=== PATIENT | female | born 1960 | race Two or more races ===

== ENCOUNTER 2025-02-05 17:53 | Emergency (ER) | payer BC, SELFPAY ==
[2025-02-05 17:54] VITALS: BMI 22.6
[2025-02-05 18:17] VITALS: BP 165/92; PULSE 63; RESP 18; TEMP 36.8; O2SAT 99
--- NOTE | 2025-02-05 18:59 | PD.EDANKLE ---
Lower Extremity Injury RME/HPI General Chief Complaint: Ankle/Foot Injury Stated Complaint: LEFT FOOT PAIN, NO INJURY SINCE TODAY Time Seen by Provider: 02/05/25 18:14 Arrival date/time: 02/05/25 17:53 RME / HPI RME / HPI Narrative: 64-year-old diabetic female presents to the ED with complaint of left dorsal foot redness and numbness that began today. She states that yesterday she was sitting on on her sister's lawn but does not remember any insect bite at the time. She denies any fever or chills, nausea or vomiting, diarrhea or abdominal pain. She has painful ambulation. She states her blood sugars have been reading very high, indicating that she does not eat right. Related Data Previous Rx's ?Medication ?Instructions ?Recorded cephalexin 500 mg capsule (Keflex) 500 mg PO TID #27 caps 04/30/20 meloxicam 15 mg tablet 15 mg PO QDAY #30 tabs 01/13/21 amoxicillin 875 mg-potassium 1 tab PO BID #20 tabs 02/05/25 clavulanate 125 mg tablet Allergies Allergy/AdvReac Type Severity Reaction Status Date / Time tramadol Allergy Severe Vomiting Verified 02/05/25 17:56 Review of Systems Review of Systems Systems Reviewed: All systems reviewed, normal except as documented Past Medical History Past Medical History NEUROLOGIC: Negative Neurological Disorders or Seizures CARDIAC: Negative Cardiac Disorders or Congestive Heart Failure RESPIRATORY: Positive Sleep Apnea; Negative Chronic Obstructive Pulmonary Disease (COPD) GASTROINTESTINAL: Positive Gastrointestinal Disorders and Gall Bladder Disease GENITOURINARY: Negative Genitourinary Disorders or Renal Disease REPRODUCTIVE: Positive Previous Pregnancies MUSCULOSKELETAL: Positive Arthritis and Carpal Tunnel Syndrome ENDOCRINE: Positive Diabetes Mellitus Type 2 and Hypothyroidism; Negative Diabetes Mellitus Type 1 HEMATOLOGIC: Negative Blood Disorders OTHER HISTORY: Positive Falls and Chicken Pox; Negative Hospitalization, Autoimmune Disease, Shingles, Blood Transfusions, Blood Transfusion Reaction, Anesthesia Reactions, Chemotherapy, Radiation Therapy or MRSA Family History FAMILY HISTORY: Positive Family Cardiac Disorders, Family Cancer and Family Surgery; Negative Family Psychiatric Problems, Family Respiratory Disorders, Family Gastrointestinal Problems or Family Anesthesia Reaction Surgical History SURGICAL: Positive Tubal Ligation Social History SMOKING STATUS: Never smoker SUBSTANCE USE: does not use ED Exam Narrative Physical exam: Alert and oriented, very pleasant 64-year-old female, no acute distress. Lungs are clear, regular rate and rhythm. Left ankle without tenderness. Normal range of motion. Left dorsal foot with erythema. No warmth noted however there is tenderness noted. She has numbness to her toes, unknown if this is new or chronic due to her poorly controlled diabetes. Course Course Course Narrative: CBC reveals a normal white count, normal H&H and normal platelets. ESR is normal at 10. CRP is normal at less than 0.5. CMP reveals normal electrolytes with the exception of an elevated glucose of 366. BUN and creatinine are normal. CO2 is minimally elevated at 31.5. LFTs are normal. Preliminary reading of left foot x-ray reveals no foreign body or bony destruction. Quality Measures none Orders Category Date Time Status XR foot comp LT min 3V Stat Exams 02/05/25 19:03 Taken CBC Stat Lab 02/05/25 19:21 Completed CMP [Comprehensive Metabolic Panel] Stat Lab 02/05/25 19:21 Completed CRP [C-Reactive Protein] Stat Lab 02/05/25 19:21 Completed ESR [Sed Rate (ESR)] Stat Lab 02/05/25 19:21 Completed Vital Signs Vital signs: Vital Signs Temperature 98.3 F 02/05/25 18:17 Pulse Rate 63 02/05/25 18:17 Respiratory Rate 18 02/05/25 18:17 Blood Pressure 165/92 H 02/05/25 18:17 Pulse Oximetry (%) 99 02/05/25 18:17 Oxygen Delivery Method Room Air 02/05/25 18:17 Extremity Injury, Lower Patient data External records reviewed:: None Clinical information provided by:: patient Social determinants that could affect healthcare access:: none Patient has the following chronic illnesses:: Diabetes How is presenting disease/condition affected by chronic disease/condition?: exacerbated by Evaluation data The following diagnostics were reviewed and interpreted by me:: lab results and radiology exam(s) Lab and/or radiology exams considered but not ordered:: N/A Interpretation Summary: As noted above Medications / Prescriptions Medications or Prescriptions considered but not ordered:: N/A Discharge Plan Plan Patient Disposition: HOME (Self Care) Discharge Disposition comment: Stable Prescriptions/Referrals Prescriptions/Med Rec: New amoxicillin-pot clavulanate 875-125 mg tablet 1 tab PO BID Qty: 20 0RF No Action cephalexin [Keflex] 500 mg capsule 500 mg PO TID Qty: 27 0RF meloxicam 15 mg tablet 15 mg PO QDAY Qty: 30 0RF Referrals: MIKEY PATEL [Primary Care Provider] - In 1 week Problem List Clinical Impression: Cellulitis Patient/Caregiver Discharge Instructions Education Materials: ED Cellulitis Additional Instructions: Take the antibiotics as prescribed and complete the course even though you may be feeling better. Use warm moist compresses and elevate the leg. Follow-up with their primary care physician in 24 to 48 hours. If you develop any new or worsening symptoms, return to the ED as soon as possible. Print Language: Vietnamese Stand Alone Forms: Veronica Award Info., Patient Portal Info Letter PA/ABRASIVE SAWYER Supervising Physician PA/ABRASIVE SAWYER Supervising Physician: Dr. Don
--- NOTE | 2025-02-05 19:03 | XR_ITS ---
Examination: Foot, left, 3 views Technique: AP, oblique, lateral views foot, 3 views Date and time of exam: February 05, 2025 1948 hours INDICATIONS: Left foot swelling and pain beginning today. FINDINGS: Mild osteoarthritis first metatarsophalangeal joint No fracture. No cortical bone destruction IMPRESSION: No fracture. No cortical bone destruction
[2025-02-05 19:29] LABS: Basophils # (Auto) 0.0 Thou/mm3 (0.0-0.2); Basophils % (Auto) 0 % (0-2.5); Eosinophils # (Auto) 0.3 Thou/mm3 (0.0-0.5); Eosinophils % (Auto) 4 % (0-10); Hematocrit 37.0 % (36.0-46.0); Hemoglobin 13.2 g/dL (12.0-16.0); Immature Granulocytes Auto 0.01 Thou/mm3 (0.00-0.00); Lymphocytes # (Auto) 1.7 Thou/mm3 (1.0-4.8); Lymphocytes % (Auto) 23 % (10-50); Mean Corpuscular HGB Conc 35.7 g/dl (31.0-37.0); Mean Corpuscular Hemoglobin 30.2 pg (25.0-35.0); Mean Corpuscular Volume 85 fL (80-100); Monocytes # (Auto) 0.6 Thou/mm3 (0.0-0.8); Monocytes % (Auto) 7 % (0-12); Neutrophils # (Auto) 4.9 Thou/mm3 (1.8-7.7); Neutrophils % (Auto) 66 % (37-80); Nucleated Red Blood Cell # 0.00 Thou/mm3 (0.00-0.00); Nucleated Red Blood Cell % 0 /100 WBC (0); Platelet Count 213 Thou/mm3 (140-440); RDW Standard Deviation 37.7 fL (36.4-46.3); Red Blood Count 4.37 Miln/mm3 (4.00-5.20); White Blood Count 7.5 Thou/mm3 (3.6-11.0)
[2025-02-05 19:39] LABS: Sed Rate (ESR) 10 mm/hr (0-30)
[2025-02-05 19:56] LABS: Alanine Aminotransferase 12 U/L (10-49); Albumin, Serum 4.6 gm/dL (3.4-4.8); Albumin/Globulin Ratio 1.9 (1.2-2.2); Alkaline Phosphatase 97 U/L (46-116); Anion Gap 9 (7-16); Aspartate Amino Transferase 14 U/L (0-34); BUN/Creatinine Ratio 10 Ratio (12-20); Bilirubin,Total 0.8 mg/dL (0.3-1.2); Blood Urea Nitrogen 9 mg/dL (9-23); C-Reactive Protein < 0.5 mg/dL (0.0-0.9); Calcium 9.7 mg/dL (8.3-10.6); Calcium (Corrected) 9.7 mg/dL (8.5-10.1); Carbon Dioxide 31.5 mMol/L (20.0-31.0); Chloride 102 mMol/L (98-107); Creatinine (Component) 0.9 mg/dL (0.6-1.3); Estimated Creatinine Clearance 50.6 mL/min (>60); Globulin 2.4 gm/dL (2.3-3.5); Glucose 366 mg/dL (74-106); Osmolality,Calculated 296 (275-295); Potassium 4.0 mMol/L (3.4-5.1); Sodium 142 mMol/L (136-145); Total Protein 7.0 gm/dL (5.7-8.2); eGFR > 60 See Note
[2025-02-05] MEDS: AMOXICILLIN/POT CLAV 875 TABLET 1 TAB PO (21:24)
== END 2025-02-05 21:28 | disposition home or self-care (01) ==
PROVIDERS: Physician Assistant; Emergency Provider Emergency Medicine; PCP Nurse Practitioner Family
DX: L03.116 Cellulitis of left lower limb (principal)
CPT/HCPCS: 36415; 73630; 80053; 85025; 85652; 86140; 99283; A9270

== ENCOUNTER 2025-04-30 14:01 | Observation (INO) | payer MEDICARE, MEDICAID, SELFPAY ==
[2025-04-30] VITALS (10 sets, daily range): BP systolic 158–179; BP diastolic 73–95; PULSE 57–76; RESP 16–97; TEMP 36–36.7; O2SAT 94–100; BMI 22.6; BMI 22.3
--- NOTE | 2025-04-30 14:27 | XR_ITS ---
Examination: CTA carotids with intravenous contrast CTA brain, head with intravenous contrast. 2-D sagittal, coronal reconstructions. 3-D reconstructions. Exam date and time: April 30, 2025, 1449 hrs. Indications: Stroke alert, onset focal neurologic deficit dizziness weakness W vision beginning today CTDI: vol (mGy) 11.1 DLP: (mGycm) 429 Technique: Multiple CTA axial brain, head carotid images post intravenous contrast injection 100 cc, [id number]. 2-D sagittal, coronal reconstructions. 3-D reconstructions, 3-D post processing including vascular maximum intensity projection images. Low dose protocols were performed. One or more of the following dose reduction techniques were used; automated exposure control, adjustment of the mA and/or KV according to patient size, use of iterative reconstruction technique. Findings: No significant common carotid carotid bifurcation or internal carotid artery stenoses. 14 mm right thyroid nodule Dominant left vertebral artery, no critical vertebral artery stenoses in the neck Intracranial vertebral arteries basilar artery and posterior cerebral branches fill with no large vessel occlusions Moderate calcification left juxtasellar internal carotid artery M1 segments middle cerebral arteries middle cerebral artery trifurcation vessels and anterior cerebral arteries fill with no large vessel occlusions Impression: 14 mm right thyroid nodule No significant neck arterial stenoses. No cerebral large vessel arterial occlusions or thrombus
--- NOTE | 2025-04-30 14:27 | XR_ITS ---
Examination: CT brain head without contrast. 2-D sagittal coronal reconstructions Date and time of exam:April 30, 2025, 1439 hrs. Indications: Stroke alert, onset focal neurologic deficit today CTDI: vol (mGy):48.4 DLP: (mGycm):941 Technique: Multiple CT axial sections of the brain have been obtained, 5 mm slice thickness. Contrast has not been administered. 2-D sagittal, coronal reconstructions have been obtained Low dose protocols were performed. One or more of the following dose reduction techniques were used; automated exposure control, adjustment of the mA and/or KV according to patient size, use of iterative reconstruction technique. Findings: No significant ventricular enlargement. Intra-axial or extra-axial hemorrhage density is not seen. No mass effect or midline shift Basal cisterns are not remarkable. Fourth ventricle is midline. Cranial vault intact. Impression: Negative for acute hemorrhage, mass effect or midline shift
--- NOTE | 2025-04-30 14:27 | EKG_ITS ---
[facility] Test Date: 2025-04-30 Pat Name: MACKENZIE QUIGLEY Department: Room: - Gender: Female Finisher Machine: : 1960 Requested By: Oniel Costa Order Number: [id number] Reading MD: Oniel Costa Measurements Intervals [place] Rate: 63 P: 23 [place]: 145 QRS: 17 QRSD: 93 T: 40 QT: 405 QTc: 415 Interpretive Statements SINUS RHYTHM Compared to ECG 04/29/2020 16:57:17 T-wave abnormality no longer present Possible ischemia no longer present /store/S0/[id number]/[id number].pdf
--- NOTE | 2025-04-30 14:27 | XR_ITS ---
Examination: AP chest single view Technique one AP portable upright chest single view Date and time: April 30, 2025 1510 hrs. Indications: Fever today. Findings: Minor prominence left ventricle. Mild vascular congestion. No lobar pneumonia. Prominent osteopenia Impression: Mild vascular congestion. No lobar pneumonia
--- NOTE | 2025-04-30 14:28 | PD.EDDIZZY ---
ED Dizzyness RME/HPI General Chief Complaint: Dizziness Stated Complaint: DIZZY SINCE 1000AM YESTERDAY Time Seen by Provider: 04/30/25 14:27 Arrival date/time: 04/30/25 14:01 RME / HPI RME / HPI Narrative: 64-year-old female patient came in for evaluation regarding sudden onset of double vision, dizziness, she cannot even walk due to unsteady gait and dizziness. Last well-known time 12:10 PM today. Her double vision is totally gone however she is still having dizziness severity 3 out of 10. She is able to ambulate now without assistance. Denies any upper or lower extremity weakness. Denies any headache. Patient denies any trauma or fall denies any neck pain denies any chest pain. Patient has been having on and off dizziness since yesterday yesterday morning and yesterday afternoon that resolved on its own. She is not as bad as today. She is not taking any blood thinner. She denies any history of DE or stroke in the past Related Data Home Medications ?Medication ?Instructions ?Recorded ?Confirmed blood-glucose sensor (FreeStyle 04/30/25 04/30/25 Zaria 3 Plus Sensor device) ergocalciferol (vitamin D2) 1,250 1,250 mcg PO .MON 04/30/25 04/30/25 mcg (50,000 unit) capsule gabapentin 100 mg capsule 100 mg PO DAILY 04/30/25 04/30/25 insulin glargine 100 unit/mL (3 25 unit subcut .AM 04/30/25 04/30/25 mL) subcutaneous pen (Lantus Solostar U-100 Insulin) metformin 500 mg 24 hr 500 mg PO BID 04/30/25 04/30/25 tablet,extended release (gastric retention) Allergies Allergy/AdvReac Type Severity Reaction Status Date / Time tramadol Allergy Severe Vomiting Verified 04/30/25 14:05 Review of Systems Review of Systems Narrative Review of Systems: Review of system reviewed and within normal limits except mentioned in HPI ED Exam Narrative Physical exam: VITAL SIGNS: Reviewed. GENERAL APPEARANCE: Alert and interactive, follows commands, no acute distress, HEAD AND FACE: Non-traumatic. ENT: PERRL, pink conjunctivitis, eyelid no trauma, Mucous membrane moist. NECK: Supple, nontender, no nuchal rigidity. CHEST: No tenderness, no crepitus, no paradoxical movement, no retractions. LUNGS: Clear, well ventilated, symmetric, no rales, no wheezing, no ronchi, no stridor, good breath sounds bilaterally. HEART: Regular rate, regular rhythm, no murmur, no gallops. ABDOMEN: Soft, positive bowel sounds, nondistended, no guarding, nontender, no rebound, no masses, RECTAL: Deferred. GENITAL: Deferred. NEUROLOGICAL: Gross motor function intact sensory function intact, Appropriate for age. MUSCULOSKELETAL: low back nontender, full range of motion. EXTREMITIES: Nontender, full range of motion. SKIN: Color pink, dry, no rash, no lacerations, no abrasions, no contusions. LYMPHATICS: Deferred. Course Quality Measures none Orders Category Date Time Status Admit to Inpatient Status Routine Admission 04/30/25 17:19 Active Patient Condition Routine Admission 04/30/25 17:19 Ordered Bedside Blood Glucose NOW Care 04/30/25 14:27 Completed COVID-19 Screening Questionnaire NOW Care 04/30/25 16:24 Active Blow Molder NOW Care 04/30/25 14:27 Completed Continuous Pulse Oximetry NOW Care 04/30/25 14:27 Completed Continuous Pulse Oximetry NOW Care 04/30/25 17:19 Completed Decision to Admit X1 Care 04/30/25 16:24 Completed EKG (ED ONLY) *Do not use* NOW Care 04/30/25 14:27 Completed In and Out Catheter NEEDED Care 04/30/25 14:27 Active Insert IV NOW Care 04/30/25 14:27 Completed Miscellaneous Nursing Order NOW Care 04/30/25 17:19 Active NIH Stroke Scale now Care 04/30/25 14:27 Active NPO NOW Care 04/30/25 14:27 Active NPO NOW Care 04/30/25 17:26 Active Neuro Check Q4H Care 04/30/25 17:19 Active Notify provider NEEDED Care 04/30/25 17:19 Active Nurse Swallow Screen X1 Care 04/30/25 17:25 Completed Nurse Swallow Screen x1 Care 04/30/25 14:27 Active Sequential Compression Device QSHIFT Care 04/30/25 17:19 Active Consult to Neurology / Tele-Neurology Routine Cons 04/30/25 14:27 Active Referral Physical Therapy Routine Cons 04/30/25 17:25 Active Referral Speech Therapy Routine Cons 04/30/25 17:25 Active Diet NPO (NOW) Diet 04/30/25 17:26 Active CA echo transesophageal Routine Exams 04/30/25 17:[address] angio stroke protocol Stat Exams 04/30/25 14:[address] stroke protocol Stat Exams 04/30/25 14:27 Completed EKG (ED Only) Stat Exams 04/30/25 14:27 Draft XR chest 1V portable Stat Exams 04/30/25 14:27 Completed CBC AM DRAW Lab 05/01/25 05:00 Ordered CBC AM DRAW Lab 05/02/25 05:00 Ordered CBC AM DRAW Lab 05/03/25 05:00 Ordered CBC AM DRAW Lab 05/04/25 05:00 Ordered CBC AM DRAW Lab 05/05/25 05:00 Ordered CBC AM DRAW Lab 05/06/25 05:00 Ordered CBC AM DRAW Lab 05/07/25 05:00 Ordered CBC Stat Lab 04/30/25 14:30 Completed Comprehensive Metabolic Panel AM DRAW Lab 05/01/25 05:00 Ordered Comprehensive Metabolic Panel AM DRAW Lab 05/02/25 05:00 Ordered Comprehensive Metabolic Panel AM DRAW Lab 05/03/25 05:00 Ordered Comprehensive Metabolic Panel AM DRAW Lab 05/04/25 05:00 Ordered Comprehensive Metabolic Panel AM DRAW Lab 05/05/25 05:00 Ordered Comprehensive Metabolic Panel AM DRAW Lab 05/06/25 05:00 Ordered Comprehensive Metabolic Panel AM DRAW Lab 05/07/25 05:00 Ordered Comprehensive Metabolic Panel Stat Lab 04/30/25 14:30 Completed Drug Screen,Urine Stat Lab 04/30/25 15:10 Completed Free T4 (Free Thyroxine) AM DRAW Lab 05/01/25 05:00 Ordered Lipid Panel AM DRAW Lab 05/01/25 05:00 Ordered Magnesium AM DRAW Lab 05/01/25 05:00 Ordered Magnesium AM DRAW Lab 05/02/25 05:00 Ordered Magnesium AM DRAW Lab 05/03/25 05:00 Ordered Magnesium AM DRAW Lab 05/04/25 05:00 Ordered Magnesium AM DRAW Lab 05/05/25 05:00 Ordered Magnesium AM DRAW Lab 05/06/25 05:00 Ordered Magnesium AM DRAW Lab 05/07/25 05:00 Ordered Magnesium Stat Lab 04/30/25 14:30 Completed Partial Thromboplastin Time Stat Lab 04/30/25 14:30 Completed Phosphorous AM DRAW Lab 05/01/25 05:00 Ordered Prothrombin Time with INR Stat Lab 04/30/25 14:30 Completed Thyroid Stimulating Hormone AM DRAW Lab 05/01/25 05:00 Ordered Troponin I Stat Lab 04/30/25 14:30 Completed Urinalysis, C/S if Indicated Stat Lab 04/30/25 15:10 Completed Acetaminophen Tab [Tylenol Tab] Med 04/30/25 17:19 Active 650 mg PO Q6H PRN Aspirin Med 04/30/25 15:03 Discontinued 325 mg PO X1 ONE Aspirin [Ecotrin] Med 05/01/25 09:00 Active 81 mg PO QDAY Atorvastatin Calcium [Lipitor] Med 04/30/25 21:00 Active 80 mg PO HS Clopidogrel [Plavix] Med 04/30/25 15:03 Discontinued 300 mg PO X1 ONE Clopidogrel [Plavix] Med 05/01/25 09:00 Active 75 mg PO QDAY Dextrose 50% Syr [D50w Syringe Abboject] Med 04/30/25 17:27 Active 25 ml IV Q15MIN PRN Dextrose 50% Syr [D50w Syringe Abboject] Med 04/30/25 17:27 Active 50 ml IV Q15MIN PRN Glucagon Inj Med 04/30/25 17:27 Active 1 mg IM Q15MIN PRN INSULIN LISPRO (AdmeLOG) [HumaLOG] Med 05/01/25 07:30 Active See Protocol SC AC Insulin Degludec Inj Med 05/01/25 09:00 Active 10 unit SC QDAY Labetalol IV [Trandate IV] Med 04/30/25 14:27 Discontinued 10 mg IVP Q15M PRN Ondansetron Inj [Zofran Inj] Med 04/30/25 14:27 Active 4 mg IVP Q4HR PRN Ondansetron Inj [Zofran Inj] Med 04/30/25 17:19 Active 4 mg IVP Q6H PRN Senna [Senokot] Med 04/30/25 17:19 Active 1 tab PO QDAY PRN Code Status Routine Oth 04/30/25 17:19 Ordered BiPAP / CPAP HS RT 04/30/25 17:40 Active Oxygen Delivery NOW RT 04/30/25 14:27 Active Oxygen Delivery PRN RT 04/30/25 17:19 Active Vital Signs Vital signs: Vital Signs Pulse Rate 76 04/30/25 14:30 Respiratory Rate 16 04/30/25 14:30 Blood Pressure 179/95 H 04/30/25 14:30 Pulse Oximetry (%) 96 04/30/25 14:30 Oxygen Delivery Method Room Air 04/30/25 14:30 Dizziness MDM Narrative MDM Narrative:: 64-year-old female patient came in for evaluation regarding sudden onset of double vision, dizziness, she cannot even walk due to unsteady gait and dizziness. Last well-known time 12:10 PM today. Her double vision is totally gone however she is still having dizziness severity 3 out of 10. She is able to ambulate now without assistance. Denies any upper or lower extremity weakness. Denies any headache. Patient denies any trauma or fall denies any neck pain denies any chest pain. Patient has been having on and off dizziness since yesterday yesterday morning and yesterday afternoon that resolved on its own. She is not as bad as today. She is not taking any blood thinner. She denies any history of DE or stroke in the past NIHs score is 0 Stroke alert was initiated right away on my initial evaluation. CT scan of the head and CT angiogram of the head and neck also all came back unremarkable. The rest of the labs unremarkable. I was able to spoke with teleneurologist, who recommends admission for stroke workup, start the patient on aspirin 325 mg and Plavix 300 mg p.o. x 1. Plan of care discussed with the patient who agrees to be admitted for further management. I spoke with hospitalist, who admitted the patient. Patient data External records reviewed:: None Clinical information provided by:: patient Social determinants that could affect healthcare access:: none Patient has the following chronic illnesses:: Diabetes mellitus How is presenting disease/condition affected by chronic disease/condition?: exacerbated by Evaluation data The following diagnostics were reviewed and interpreted by me:: lab results and radiology exam(s) Lab and/or radiology exams considered but not ordered:: None Interpretation Summary: EKG showed normal sinus rhythm, ventricular rate of 63 bpm, no ST segment elevation depression noted. Medications / Prescriptions Medications or Prescriptions considered but not ordered:: None Medication administrations:: Medication Administration History Acetaminophen (Acetaminophen 325 Mg Tablet) 650 mg PO Q6H PRN PRN Reason: Fever >100.4 or pain Stop: 05/30/25 17:18 Aspirin (Aspirin Ec 81 Mg Tabec) 81 mg PO QDAY RONDA Stop: 05/31/25 08:59 Atorvastatin Calcium (Atorvastatin Calcium 20 Mg Tablet) 80 mg PO HS RONDA Stop: 05/30/25 20:59 Last Admin: 04/30/25 20:09 Dose: 80 mg Documented By: KAYLEEN Clopidogrel Bisulfate (Clopidogrel Bisulfate 75 Mg Tablet) 75 mg PO QDAY RONDA Stop: 05/31/25 08:59 Dextrose (Dextrose 50%-Water Inj 50 Ml Syringe) 25 ml IV Q15MIN PRN PRN Reason: BG 50-70 responsive npo pt Stop: 05/30/25 17:26 Dextrose (Dextrose 50%-Water Inj 50 Ml Syringe) 50 ml IV Q15MIN PRN PRN Reason: BG <50 OR BG <70 & pt unresponsive Stop: 05/30/25 17:26 Glucagon (Glucagon Inj 1 Mg Vial) 1 mg IM Q15MIN PRN PRN Reason: BG <70, and no IV access Insulin Degludec (Insulin Degludec 5 Unit/0.05 Ml (Per 5 Units)) 10 unit SC QDAY [facility] Stop: 05/31/25 08:59 Insulin Human Lispro (Insulin Lispro (Admelog) 1 Unit/0.01 Ml Unit) 0 unit SC [facility]; Protocol Stop: 05/31/25 07:29 Labetalol HCl (Labetalol Inj 5 Mg/Ml Vial 20 Ml) 10 mg IVP Q15M PRN PRN Reason: SBP > 200 Ondansetron HCl (Ondansetron Inj 2 Mg/Ml Inj 2 Ml) 4 mg IVP Q4HR PRN PRN Reason: NAUSEA OR VOMITING Stop: 05/30/25 14:26 Ondansetron HCl (Ondansetron Inj 2 Mg/Ml Inj 2 Ml) 4 mg IVP Q6H PRN; Protocol PRN Reason: NAUSEA OR VOMITING Stop: 05/30/25 17:18 Sennosides (Senna Tablet) 1 tab PO QDAY PRN; Protocol PRN Reason: constipation Stop: 05/30/25 17:18 Discontinued Medications Aspirin (Aspirin 325 Mg Tablet) 325 mg PO X1 ONE Stop: 04/30/25 15:04 Last Admin: 04/30/25 15:25 Dose: 325 mg Documented By: CAROLINE Clopidogrel Bisulfate (Clopidogrel Bisulfate 75 Mg Tablet) 300 mg PO X1 ONE Stop: 04/30/25 15:04 Last Admin: 04/30/25 15:25 Dose: 300 mg Documented By: CAROLINE Influenza Virus Vaccine Quadrival (Influenza Virus Quadrivalent 0.5 Ml Syringe) 0.5 ml IMi .ONCE ONE Stop: 04/30/25 18:31 Labetalol HCl (Labetalol Inj 5 Mg/Ml Vial 20 Ml) 10 mg IVP Q15M PRN PRN Reason: HYPER Plavix and aspirin Consultations Consultation(s) initiated? (list below): Yes Consultation #1 (Physician, Specialty, Details): Teleneurologist Diagnosis Dizziness Differential Diagnosis: orthostatic hypotension, vertebral basilar insufficiency and cerebrovascular accident Most likely diagnosis given after review of the tests above:: Brain TIA Admission Indicated Admission indicated?: indicated Explain why admission is indicated or not indicated:: Provider management Admission Request Was there a request for admission?: Yes Admission Attestation Admission request attestation: Discussed case with [ Dr kimball] from Hospitalist service regarding admission. Discussed patients ED course, exam findings, labs, and radiology results. The Hospitalist [agrees ] to accept the patient for admission. Disposition Plan Disposition Plan: Admit Discharge Plan Plan Patient Disposition: Admit Acute Care w/in Hospital Problem List Clinical Impression: Brain TIA
--- NOTE | 2025-04-30 14:33 | PC.NURSE ---
Stroke alert called in Triage and patient taken to CT via gurney on CM, patient c/o dizziness, double vision and gen. weakness patient states intermittently x 1 month with another episode that started at approx 12:15pm today, Patient states currently symptoms have resolved. Teleneuorlogist on monitor consulting with patient.
[2025-04-30 14:37] LABS: Basophils # (Auto) 0.0 Thou/mm3 (0.0-0.2); Basophils % (Auto) 0 % (0-2.5); Eosinophils # (Auto) 0.1 Thou/mm3 (0.0-0.5); Eosinophils % (Auto) 2 % (0-10); Hematocrit 39.4 % (36.0-46.0); Hemoglobin 13.8 g/dL (12.0-16.0); Immature Granulocytes Auto 0.02 Thou/mm3 (0.00-0.00); Lymphocytes # (Auto) 1.7 Thou/mm3 (1.0-4.8); Lymphocytes % (Auto) 25 % (10-50); Mean Corpuscular HGB Conc 35.0 g/dl (31.0-37.0); Mean Corpuscular Hemoglobin 30.2 pg (25.0-35.0); Mean Corpuscular Volume 86 fL (80-100); Monocytes # (Auto) 0.4 Thou/mm3 (0.0-0.8); Monocytes % (Auto) 6 % (0-12); Neutrophils # (Auto) 4.3 Thou/mm3 (1.8-7.7); Neutrophils % (Auto) 66 % (37-80); Nucleated Red Blood Cell # 0.00 Thou/mm3 (0.00-0.00); Nucleated Red Blood Cell % 0 /100 WBC (0); Platelet Count 171 Thou/mm3 (140-440); RDW Standard Deviation 37.8 fL (36.4-46.3); Red Blood Count 4.57 Miln/mm3 (4.00-5.20); White Blood Count 6.5 Thou/mm3 (3.6-11.0)
--- NOTE | 2025-04-30 14:56 | PC.NURSE ---
Per Dr. Moore patient not a candidate for TNKAse, patient to ER room 2 hooked up to bedside cm, pulse ox, patient denies pain, skin is warm dry and pink, eladia. equal roll picker and able to move all ext.
[2025-04-30 14:58] LABS: Alanine Aminotransferase 11 U/L (10-49); Albumin, Serum 4.4 gm/dL (3.4-4.8); Albumin/Globulin Ratio 1.9 (1.2-2.2); Alkaline Phosphatase 100 U/L (46-116); Anion Gap 7 (7-16); Aspartate Amino Transferase 14 U/L (0-34); BUN/Creatinine Ratio 8 Ratio (12-20); Bilirubin,Total 0.8 mg/dL (0.3-1.2); Blood Urea Nitrogen 6 mg/dL (9-23); Calcium 9.5 mg/dL (8.3-10.6); Calcium (Corrected) 9.5 mg/dL (8.5-10.1); Carbon Dioxide 29.9 mMol/L (20.0-31.0); Chloride 100 mMol/L (98-107); Creatinine (Component) 0.8 mg/dL (0.6-1.3); Estimated Creatinine Clearance 56.9 mL/min (>60); Globulin 2.3 gm/dL (2.3-3.5); Glucose 358 mg/dL (74-106); Magnesium 2.0 mg/dL (1.6-2.6); Osmolality,Calculated 285 (275-295); Potassium 4.6 mMol/L (3.4-5.1); Sodium 137 mMol/L (136-145); Total Protein 6.7 gm/dL (5.7-8.2); Troponin I < 0.020 ng/mL (0.0-0.045); eGFR > 60 See Note
--- NOTE | 2025-04-30 15:01 | PD.TNEURO ---
Tele Neuro Consultation Consultation Date 04/30/25 Most Recent Vital Signs Last Vital Signs Pulse 76 04/30/25 14:30 Resp 16 04/30/25 14:30 BP 179/95 H 04/30/25 14:30 Pulse Ox 96 04/30/25 14:30 O2 Del Method Room Air 04/30/25 14:30 Consultation Narrative [facility] Tele[facility]urology Consult [facility] Patient Name:???MACKENZIE CESAR Date of :???1960 Identification Number:??? Date of Service:???04/30/2025 14:28:06 Diagnosis:?R29.818 - Transient neurological symptoms Impression: ?64 year old woman with T2DM and HTN for whom neurology is consulted for evaluation of stroke. LKW 1200 today. Symptoms of gait instability and double vision. Now resolved. Two episodes of the same yesterday. NIHSS = 0. Thrombolytics deferred due to resolved symptoms. NCCT Head without acute ischemia or hemorrhage. CTA Head and Neck are pending. Overall, suspect high risk TIA likely related to transient ischemia of the brainstem as culprit of symptoms. I recommend inpatient evaluation/management. ? ?Recommendations: ?-q4 vitals/neurochecks ?-BP goal permissive up to 220/110mmHg for 24 hours followed by gradual reduction in BP toward goal normotension avoiding drop in BP >15% daily ?-Blood glucose goal <180mg/dL while admitted ?-Plavix 300mg x1 in ED, Aspirin 325mg x1 in ED ?-Continue Aspirin 81mg qdaily + Plavix 75mg qdaily x21 days then deescalate to aspirin monotherapy ?-Atorvastatin 80mg qHS ?-Check LDL and A1c (goal LDL <70, goal A1c <7) ?-Obtain CTA Head and Neck w/ contrast, MRI Brain w/o contrast, TTE w/ bubble, and place on telemetry monitoring ?-PT/OT/ST consults, NPO until passes bedside swallow study ?-Neurology follow up recommended Advanced Imaging: Advanced imaging has been ordered. Results pending. Metrics: Last Known Well: 04/30/2025 12:00:00 Dispatch Time: 04/30/2025 14:28:06 Arrival Time: 04/30/2025 14:01:00 Initial Response Time: 04/30/2025 14:29:54Symptoms: Dizziness, Double Vision. Initial patient interaction: 04/30/2025 14:10:30 NIHSS Assessment Completed: 04/30/2025 14:15:27Patient is not a candidate for Thrombolytic. Thrombolytic Medical Decision: 04/30/2025 14:15:30Patient was not deemed candidate for Thrombolytic because of following reasons: Resolved symptoms . CT Head: I personally reviewed all the CT images that were available to me and it showed: No hemorrhage or obvious acute ischemia Primary Provider Notified of Diagnostic Impression and Management Plan on: 04/30/2025 14:55:22 History of Present Illness:Patient is a 64 year old Female. Patient was brought by private transportation with symptoms of Dizziness, Double Vision. Mackenzie Cesar is a 64 year old woman with T2DM and HTN who presents to ED for evaluation of intermittent dizziness and double vision. She endorses onset of symptoms yesterday around 1000 as she was walking into her home she had a few moments of feeling off balance and noticing double vision. She sat down and symptoms resolved. Then, the same afternoon, around 1600 she suffered sudden onset of the same symptoms while driving. This episode lasted several minutes before eventually subsiding. Today, she was doing well until around noon when she suffered another episode of the same, symptoms now resolved. Past Medical History: ?Hypertension ?Diabetes Mellitus Medications: No Anticoagulant use? No Antiplatelet use Reviewed EMR for current medications Allergies:? Reviewed Social History: Drug Use: No Family History: There is no family history of premature cerebrovascular disease pertinent to this consultation ROS : 14 Points Review of Systems was performed and was negative except mentioned in HPI. Past Surgical History: There Is No Surgical History Contributory To Today?s Visit Examination: BP(179/95),?Pulse(76),?Blood Glucose(354) 1A: Level of Consciousness - Alert; keenly responsive?+ 0 1B: Ask Month and Age - Both Questions Right?+ 0 1C: Blink Eyes & Squeeze Hands - Performs Both Tasks?+ 0 2: Test Horizontal Extraocular Movements - Normal?+ 0 3: Test Visual Peña - No Visual Loss?+ 0 4: Test Facial Palsy (Use Grimace if Obtunded) - Normal symmetry?+ 0 5A: Test Left Arm Motor Drift - No Drift for 10 Seconds?+ 0 5B: Test Right Arm Motor Drift - No Drift for 10 Seconds?+ 0 6A: Test Left Leg Motor Drift - No Drift for 5 Seconds?+ 0 6B: Test Right Leg Motor Drift - No Drift for 5 Seconds?+ 0 7: Test Limb Ataxia (FNF/Heel-York) - No Ataxia?+ 0 8: Test Sensation - Normal; No sensory loss?+ 0 9: Test Language/Aphasia - Normal; No aphasia?+ 0 10: Test Dysarthria - Normal?+ 0 11: Test Extinction/Inattention - No abnormality?+ 0 NIHSS Score:?0 Pre-Morbid Modified Mikaela Scale: 0 Points = No symptoms at all Spoke with :?ED Attending MD This consult was conducted in real time using interactive audio and video technology. Patient was informed of the technology being used for this visit and agreed to proceed. Patient located in hospital and provider located at home/office setting. Patient is being evaluated for possible acute neurologic impairment and high probability of imminent or life-threatening deterioration. I spent total of 35 minutes providing care to this patient, including time for face to face visit via telemedicine, review of medical records, imaging studies and discussion of findings with providers, the patient and/or family. Dr Nestor Moore [facility] For Inpatient follow-up with [facility] physician please call [facility] at . As we are not an outpatient service for any post hospital discharge needs please contact the hospital for assistance. If you have any questions for the [facility] physicians or need to reconsult for clinical or diagnostic changes please contact us via [facility] at . Signature :?Nestor Moore
[2025-04-30] MEDS: CLOPIDOGREL BISULFATE 75 MG TABLET 300 MG PO (15:25)
[2025-04-30 15:31] LABS: Collection Type, Urine Clean Catch
[2025-04-30 15:34] LABS: Bilirubin,Urine Negative (Negative); Blood,Urine 2+ (Negative); Clarity,Urine Clear (Clear/Hazy); Color,Urine Yellow (Lt Yel-Yel); Culture Indicated,Urine Not Indicated; Glucose, Urine Negative (Negative); Ketones,Urine 1+ (Negative); Leukocyte Esterase,Urine Negative (Negative); Nitrite,Urine Negative (Negative); PH,Urine 6.5 (5.0-7.0); Protein,Urine Trace (Neg - Trace); RBC,Urine 146 /hpf (0-3); Specific Gravity,Urine 1.026 (1.001-1.035); Squamous Epithelial Cell,Urine < 1 /hpf (0-5); Urobilinogen,Urine Negative mg/dL (0.0-1.0); WBC,Urine 7 /hpf (0-5)
[2025-04-30 15:41] LABS: Amphetamine/Methamp Scrn,U Negative (Negative); Barbiturate Screen,Urine Negative (Negative); Benzodiazepines Screen,Urine Negative (Negative); Benzoylecgonine Screen, Ur Negative (Negative); Fentanyl Screen,Urine Negative (Negative); Opiate Screen,Urine Negative (Negative); THC Screen,Urine Negative (Negative)
[2025-04-30 15:54] LABS: INR 0.9 (0.9-1.3); Partial Thromboplastin Time 25.0 Seconds (22.0-36.0); Prothrombin Time 9.9 Seconds (9.0-12.2)
--- NOTE | 2025-04-30 17:28 | PD.RESHP ---
Documentation for date of: 04/30/25 Senior resident attestation: Patient evaluated and examined at the bedside, plan of care discussed with rest of the team including my attending physician, except as noted. Patient is a 61-year-old female past medical history of diverticulitis, JESSICA, and hypertension, who presented with recurrent episodes of double vision and dizziness. Patient reported episodes of dizziness and double vision, and transiently decreased vision from the left eye which improved shortly after. Patient had the symptoms yesterday which improved after few minutes and later had another episode when she was driving. NIHSS score was 0 as documented by teleneuro, patient was determined not a candidate for thrombolysis, but recommending admission and close observation as well as MRI for high risk TIA symptoms. Symptoms are concerning for thromboembolic phenomena as well as posterior circulation stroke. #Rule out stroke?CT and CTA were done in the ER, will admit patient for MRI. Echocardiogram and neurology evaluation. Quresh PGY3 HPI History of Present Illness Chief complaint: dizziness & double vision, stroke r/o History of present illness: Bridget Cesar 64F pmhx significant for IDDM2, diabetic neuropathy, JESSICA and hypertension who presents to with dizziness and double vision. Patient reports 3 episodes of double vision and dizziness. Dizziness is described as she is spinning not the room, denies loss of consciousness. First episode yesterday at 9 AM which occurred when she was walking around her mother's house, lasted a few seconds and resolved spontaneously. Second episode occurred when she was at a stoplight in her car reports sudden dizziness and left eye double vision with normal right vision the last several for about 5 minutes, she was able to ticket puller to park and rested until symptoms went away spontaneously. Third episode today at noon when she was getting up from doing laundry when she felt sudden dizziness and double vision lasting also for about 5 minutes resolving spontaneously. Patient reports never having's episodes before. Denies any nausea, vomiting, diaphoresis, presyncope, SOB or chest pain during these episodes. Dizziness is not reproducible with quick head movements denies any recent respiratory illness, new medication administration or vaccines. Denies any decreased p.o. intake reporting drinking 3-5 bottles of water a day more if she is thirsty. Does endorse urinary urgency and frequency with little output and occasionally has pain during urination for the past 2 months and she thinks she has UTI. Does endorse poor sleep, attributes to JESSICA and used to use CPAP however machine broke, describes orthopnea and PND every hour, no dyspnea on exertion. Denies any recent fever or chills. Reports using glucometer however fell few days ago but prior readings read high. Reports injecting herself with a medicine of 25 units every morning. Most recent A1c to her knowledge is 11, used to be 14. Saw a traveling repair accountant earlier this year who told her her eyes were good . PCP or Dr. Chacon and Dr. Chaney. Does not see a airport maintenance laborer or odd shoe examiner. PMHx: As above Surgical Hx: Bilateral cataract surgery (2022), bilateral carpal tunnel surgery, right elbow surgery, right bunion surgery, bilateral knee meniscal repairs, cholecystectomy, tubal ligation FHx: 8 siblings, 3 . Sister at 58 from likely heart complications, sister at 56 in 2022 likely from her complications, brother at age 54 from colon cancer or heart problems. Sister alive open heart surgery at age 62 with some kind of cancer, brother alive open heart surgery unknown age, everybody has diabetes Social Hx: Denies any smoking or recreational illicit drug use. Drinks about 4 beers once a week. Lives in a house in [place] by herself with support of nephew and daughter nearby. Retired about 6 years ago and previously worked in [employer] Allergies: Tramadol vomiting Medications: Metformin 500 mg twice daily, likely insulin 25 units every morning, vitamin D, third unknown medication In ED, BP 179/95, HR 76, RR 16, afebrile, satting 96% room air, significant labs include glucose 358, troponins negative.. In ED, given Plavix 300 mg x 1 and aspirin 3 to 25 mg x 1. Teleneurology consulted. Chest x-ray mild vascular congestion no lobar pneumonia. CT head negative for acute hemorrhage, mass effect or midline shift. Head neck CTA showed 14 mm right thyroid nodule, no significant neck arterial stenosis or cerebral large vessel arterial occlusions or thrombus. EKG shows sinus rhythm rate 63 QTc 415 Patient was admitted for further workup and stroke r/. Review of Systems Review of Systems Systems Reviewed: All systems reviewed, normal except as documented Exam Vital Signs Temp Pulse Resp BP Pulse Ox O2 Del Method 98.1 F 59 L 16 168/87 H 100 Room Air 04/30/25 14:57 04/30/25 16:55 04/30/25 16:55 04/30/25 16:55 04/30/25 16:55 04/30/25 16:55 Narrative Exam GENERAL: AOx3, no acute distress HEENT: NC/AT, mucous membranes moist, bilateral sclera anicteric CARDIOVASCULAR: regular rate and rhythm, S1/S2 present, no murmurs appreciated PULMONARY: clear to auscultation bilaterally, no rales/rhonchi/wheezes ABDOMINAL: soft, non-tender, non-distended, no rebound/guarding, bowel sounds present EXTREMITIES: no peripheral edema SKIN: warm and dry, intact, no rashes NEURO: CN II-XII grossly intact, no focal deficits, alert, following commands Results: Labs 05/01/25 04:50 05/01/25 04:50 Labs: Short CBC 04/30/25 Range/Units 14:30 WBC 6.5 (3.6-11.0) Thou/mm3 Hgb 13.8 (12.0-16.0) g/dL Hct 39.4 (36.0-46.0) % Plt Count 171 (140-440) Thou/mm3 BMP 04/30/25 14:30 Sodium 137 Potassium 4.6 Chloride 100 Carbon Dioxide 29.9 BUN 6 L Creatinine 0.8 Glucose 358 H Calcium 9.5 Cardiac Enzymes 04/30/25 Range/Units 14:30 Troponin I < 0.020 (0.0-0.045) ng/mL Liver Function 04/30/25 Range/Units 14:30 Total Bilirubin 0.8 (0.3-1.2) mg/dL AST 14 (0-34) U/L ALT 11 (10-49) U/L Alkaline Phosphatase 100 (46-116) U/L Albumin 4.4 (3.4-4.8) gm/dL Urine 04/30/25 Range/Units 15:10 Urine Color Yellow (Lt Yel-Yel) Urine Clarity Clear (Clear/Hazy) Urine pH 6.5 (5.0-7.0) Ur Specific [place] 1.026 (1.001-1.035) Urine Protein Trace (Neg - Trace) Urine Glucose (UA) Negative (Negative) Quality Measures Quality Measures VTE prophylaxis Medications Home Medications and Allergies Home Medications ?Medication ?Instructions ?Recorded ?Confirmed ?Type blood-glucose sensor (FreeStyle 04/30/25 04/30/25 History Zaria 3 Plus Sensor device) ergocalciferol (vitamin D2) 1,250 1,250 mcg PO .MON 04/30/25 04/30/25 History mcg (50,000 unit) capsule gabapentin 100 mg capsule 100 mg PO DAILY 04/30/25 04/30/25 History insulin glargine 100 unit/mL (3 25 unit subcut .AM 04/30/25 04/30/25 History mL) subcutaneous pen (Lantus Solostar U-100 Insulin) metformin 500 mg 24 hr 500 mg PO BID 04/30/25 04/30/25 History tablet,extended release (gastric retention) Allergies Allergy/AdvReac Type Severity Reaction Status Date / Time tramadol Allergy Severe Vomiting Verified 04/30/25 14:05 Visit Medications Acetaminophen (Acetaminophen 325 Mg Tablet) 650 mg PO Q6H PRN PRN Reason: Fever >100.4 or pain Stop: 05/30/25 17:18 Aspirin (Aspirin Ec 81 Mg Tabec) 81 mg PO QDAY [facility] Stop: 05/31/25 08:59 Atorvastatin Calcium (Atorvastatin Calcium 20 Mg Tablet) 80 mg PO [facility] Stop: 05/30/25 20:59 Clopidogrel Bisulfate (Clopidogrel Bisulfate 75 Mg Tablet) 75 mg PO QDAY RONDA Stop: 05/31/25 08:59 Insulin Degludec (Insulin Degludec 5 Unit/0.05 Ml (Per 5 Units)) 10 unit SC QDAY RONDA Stop: 05/31/25 08:59 Labetalol HCl (Labetalol Inj 5 Mg/Ml Vial 20 Ml) 10 mg IVP Q15M PRN PRN Reason: HYPER Ondansetron HCl (Ondansetron Inj 2 Mg/Ml Inj 2 Ml) 4 mg IVP Q4HR PRN PRN Reason: NAUSEA OR VOMITING Stop: 05/30/25 14:26 Ondansetron HCl (Ondansetron Inj 2 Mg/Ml Inj 2 Ml) 4 mg IVP Q6H PRN; Protocol PRN Reason: NAUSEA OR VOMITING Stop: 05/30/25 17:18 Sennosides (Senna Tablet) 1 tab PO QDAY PRN; Protocol PRN Reason: constipation Stop: 05/30/25 17:18 Discontinued Medications Aspirin (Aspirin 325 Mg Tablet) 325 mg PO X1 ONE Stop: 04/30/25 15:04 Last Admin: 04/30/25 15:25 Dose: 325 mg Clopidogrel Bisulfate (Clopidogrel Bisulfate 75 Mg Tablet) 300 mg PO X1 ONE Stop: 04/30/25 15:04 Last Admin: 04/30/25 15:25 Dose: 300 mg Assessment & Plan Plan Bridget Cesar 64F pmhx significant for IDDM2, diabetic neuropathy, JESSICA and hypertension who presents to [facility] ED 04/30 with dizziness and double vision, admitted for stroke rule out, found to be hyperglycemic. #Stroke r/o #Dizziness #Diplopia Presents with 3 episodes of acute dizziness and diplopia, left eye diplopia tested only during second episode. On admission, hypertensive with glucose 358. Chest x-ray mild vascular congestion no lobar pneumonia. CT head negative for acute hemorrhage, mass effect or midline shift. Head neck CTA showed 14 mm right thyroid nodule, no significant neck arterial stenosis or cerebral large vessel arterial occlusions or thrombus. EKG shows sinus rhythm rate 63 QTc 415 Ddx likely 2/2 hyperglycemia vs CVA/TIA vs sick sinus syndrome s/p Plavix 300 mg x 1 and ASA 81 mg x 1 in ED Plan: - Teleneurology consulted - F/u MRI, TTE - Started atorvastatin 80 mg qhs - Start ASA 81 mg QD and Plavix 75 mg QD tomorrow for 21 days, then transition to ASA only - q4h neurochecks - PT and ST consulted - NPO until passes swallow evaluation - Aspirations precautions and head of bed elevation 30 deg - Permissive up to 220/110mmHg for 24 hours followed by gradual reduction in BP toward goal normotension avoiding drop in BP >15% daily - Neurology consulted, recs appreciated #Hyperglycemia #IDDM2 #Diabetic neuropathy History of insulin-dependent diabetes, uses 25 units of insulin glargine in AM. Had Lashawn 3 however fell off a few days ago but readings prior to were always read as high. Blood glucose on admission 358. Also reports decreased sensation in bilateral feet, only mild. Plan: - F/u AM a1c, lipid panel, TSH/T4 - Started degludac 10u and SSI step 1 #JESSICA Per patient history. Reports previously using CPAP machine at home however broke a while ago. Plan: - CPAP qhs ordered #Essential HTN States she had HTN in the past, has never been on antihypertensives. Plan: - Permissive HTN per teleneurology for stroke r/o - CTM BP #Urinary Frequency #Urinary Urgency Patient reports 2 month-long history of urinary frequency and urgency, pain on urination occasionally. Has previously had 2 UTIs within the past 1 to 2 years in which resolved with antibiotics. Admission UA 1+ ketones, 2+ blood, 146 RBC, 7 WBC Current low suspicion for urinary tract infection with UA negative and likely secondary to hyperglycemia Plan: - CTM symptoms - Consider abx if symptoms become more severe Hospital management: Lines: PIV Diet: NPO until passes bedside swallow Bowel: Senna prn GI prophylaxis: not indicated DVT prophylaxis: SCDs iso stroke r/o Disposition: tele for stroke r/o CODE STATUS: FULL CODE Plan of care discussed with attending Dr. Durant, and PGY-3 Dr. Vila. Екатерина Bonner, DO PGY-1 Internal Medicine Attending Provider Attestation/Addendum I have examined the patient, reviewed labs and imaging findings, discussed the case with the resident(s), and reviewed entered orders. I agree with the plan of care as outlined in this note, with these additional summaries/recommendations: After examination of the patient and review of the clinical data, I feel that this patient needs admission to the hospital for further treatment and evaluation. Patient is a 64-year-old female with a medical history of JESSICA, primary hypertension, uncontrolled diabetes mellitus type 2, neuropathy, dyslipidemia, and vitamin D deficiency presents to [facility] emergency department on 04/30/2025 with chief complaints of double vision/dizziness and unsteady gait. Patient seen at bedside. Patient will be admitted for CVA rule out. Suspect TIA given patient's transient neurologic symptoms. Patient was seen by teleneurology who recommends loading doses of aspirin and Plavix which the patient received. We will continue aspirin 81 mg p.o. daily and Plavix 75 mg p.o. daily x 21 days then aspirin monotherapy. Start atorvastatin 80 mg p.o. daily. Order MRI brain, transthoracic echocardiogram, PT, and swallow screen. Consult in-house neurology, recommendations appreciated. Order vascular risk factors with TSH, lipid panel, and A1c. Patient has diabetes mellitus type 2 with hyperglycemia. On admission blood glucose 358. We will start basal and bolus insulin with Accu-Cheks. Target blood sugar of 140-180 while hospitalized. Hold home antihypertensives to allow for permissive hypertension. CPAP at night for obstructive sleep apnea. Patient updated on the plan and in agreement. All questions answered to satisfaction. Please see residents note for additional details and management. Dr. Carleen MD
[2025-04-30] MEDS: ATORVASTATIN CALCIUM 20 MG TABLET 80 MG PO (20:09)
--- NOTE | 2025-04-30 22:43 | ESPR_ITS ---
Documentation for date of: 04/30/25 Subjective Subjective Interval history: Patient was seen in telemetry, no similar episodes reported after admission. Exam - Neurology Vital Signs Temp Pulse Resp BP Pulse Ox O2 Del Method 97.0 F 60 16 158/89 H 97 Room Air 04/30/25 20:00 04/30/25 20:00 04/30/25 20:00 04/30/25 20:00 04/30/25 20:00 04/30/25 20:00 Narrative Exam GENERAL APPEARANCE: Well hydrated, well-nourished in no acute distress. HEENT: Normocephalic, atraumatic, extraocular movements intact. Pupils: Equal reacting to light and accommodation NECK: Supple, no JVD or bruits. CARDIOVASULAR: Heart: S1, S2 heard, regular without S3-S4 or murmur no rubs or gallops. LUNGS/CHEST: Clear to auscultation bilaterally. No rails, rhonchi, or wheezing. Normal inspection. ABDOMEN: Soft, nontender, with normal bowel sounds. No pulsatile masses. No rebound, rigidity, or guarding. Normal inspection and palpation. EXTREMITIES: Normal inspection and palpation. No edema, clubbing or cyanosis. SKIN: Warm and dry without rashes. Normal inspection. MUSCULOSKELETAL: No cervical, thoracic, lumbar or midline bony tenderness. Normal inspection. NEURO: Alert, awake and oriented x3. Cranial nerves: II through XII grossly intact. Speech and language: Normal with no dysarthria or dysphasia. Motor system: Tone and bulk: Normal: Strength: 5 out of 5 in all 4 extremities; No pronator drift noted. Deep tendon reflexes: 2+ bilaterally symmetrical. Plantar reflex: Downgoing bilaterally. Sensory system: Intact to all modalities of sensation bilaterally. Coordination: Intact to yavuoe-cyrz-scvra and jfwa-lwqz-ganx test bilaterally. No ataxia, no dysmetria, or dysdiadochokinesia noted. No intention tremors noted. Gait: Normal. Toe, heel, tandem walk all are normal. Romberg: Negative. No signs of meningeal irritation noted. PSYCHIATRIC: Normal mood and affect. Objective Labs 04/30/25 14:30 04/30/25 14:30 Labs: Laboratory Results - last 24 hr 04/30/25 04/30/25 14:30 15:10 WBC 6.5 RBC 4.57 Hgb 13.8 Hct 39.4 MCV 86 MCH 30.2 MCHC 35.0 RDW Std Deviation 37.8 Plt Count 171 Neut % (Auto) 66 Lymph % (Auto) 25 [place] % (Auto) 6 Eos % (Auto) 2 Baso % (Auto) 0 Neut # (Auto) 4.3 Lymph # (Auto) 1.7 [place] # (Auto) 0.4 Eos # (Auto) 0.1 Baso # (Auto) 0.0 Immature Gran # (Auto) 0.02 H Absolute Nucleated RBC 0.00 Immature Gran % 0 Nucleated RBC % 0 PT 9.9 INR 0.9 APTT 25.0 Sodium 137 Potassium 4.6 Chloride 100 Carbon Dioxide 29.9 Anion Gap 7 BUN 6 L Creatinine 0.8 Estim Creat Clear Calc 56.9 L eGFR > 60 BUN/Creatinine Ratio 8 L Glucose 358 H Calculated Osmolality 285 Calcium 9.5 Corrected Calcium 9.5 Magnesium 2.0 Total Bilirubin 0.8 AST 14 ALT 11 Alkaline Phosphatase 100 Troponin I < 0.020 Total Protein 6.7 Albumin 4.4 Globulin 2.3 Albumin/Globulin Ratio 1.9 Ur Collection Type Clean Catch Urine Color Yellow Urine Clarity Clear Urine pH 6.5 Ur Specific [place] 1.026 Urine Protein Trace Urine Glucose (UA) Negative Urine Ketones 1+ A Urine Blood 2+ A Urine Nitrite Negative Urine Bilirubin Negative Urine Urobilinogen (Auto) Negative Ur Leukocyte Esterase Negative Urine RBC 146 H Urine WBC 7 H Ur Squamous Epith Cells < 1 Urine Bacteria None Ur Culture Indicated? Not Indicated Urine Opiates Screen Negative Urine Fentanyl Screen Negative Ur Barbiturates Screen Negative U Amphetamin/Meth Scrn Negative U Benzodiazepines Scrn Negative U Cocaine Metab Screen Negative U Marijuana (THC) Screen Negative Assessment & Plan Assessment and plan (1) Brain TIA: Status: Acute Assessment and plan: Will follow-up with the TIA workup including MRI brain, echocardiogram and labs. Continue with aspirin 81 mg and statin Continue to monitor for any recurrence
[2025-05-01] VITALS (9 sets, daily range): BP systolic 120–150; BP diastolic 65–81; PULSE 53–98; RESP 13–94; TEMP 36.1–36.7; O2SAT 97–99; BMI 22.3
[2025-05-01 05:31] LABS: Basophils # (Auto) 0.0 Thou/mm3 (0.0-0.2); Basophils % (Auto) 0 % (0-2.5); Eosinophils # (Auto) 0.2 Thou/mm3 (0.0-0.5); Eosinophils % (Auto) 4 % (0-10); Hematocrit 36.5 % (36.0-46.0); Hemoglobin 12.7 g/dL (12.0-16.0); Immature Granulocytes Auto 0.01 Thou/mm3 (0.00-0.00); Lymphocytes # (Auto) 1.9 Thou/mm3 (1.0-4.8); Lymphocytes % (Auto) 31 % (10-50); Mean Corpuscular HGB Conc 34.8 g/dl (31.0-37.0); Mean Corpuscular Hemoglobin 30.0 pg (25.0-35.0); Mean Corpuscular Volume 86 fL (80-100); Monocytes # (Auto) 0.4 Thou/mm3 (0.0-0.8); Monocytes % (Auto) 7 % (0-12); Neutrophils # (Auto) 3.5 Thou/mm3 (1.8-7.7); Neutrophils % (Auto) 58 % (37-80); Nucleated Red Blood Cell # 0.00 Thou/mm3 (0.00-0.00); Nucleated Red Blood Cell % 0 /100 WBC (0); Platelet Count 135 Thou/mm3 (140-440); RDW Standard Deviation 38.0 fL (36.4-46.3); Red Blood Count 4.23 Miln/mm3 (4.00-5.20); White Blood Count 6.0 Thou/mm3 (3.6-11.0)
[2025-05-01 06:14] LABS: Alanine Aminotransferase 10 U/L (10-49); Albumin, Serum 3.7 gm/dL (3.4-4.8); Albumin/Globulin Ratio 1.9 (1.2-2.2); Alkaline Phosphatase 83 U/L (46-116); Anion Gap 9 (7-16); Aspartate Amino Transferase 14 U/L (0-34); BUN/Creatinine Ratio 13 Ratio (12-20); Bilirubin,Total 0.7 mg/dL (0.3-1.2); Blood Urea Nitrogen 8 mg/dL (9-23); Calcium 8.6 mg/dL (8.3-10.6); Calcium (Corrected) 8.8 mg/dL (8.5-10.1); Carbon Dioxide 28.0 mMol/L (20.0-31.0); Cardiac Risk Estimate 3.0 RATIO (3.7-5.6); Chloride 105 mMol/L (98-107); Cholesterol 213 mg/dL (132-200); Creatinine (Component) 0.6 mg/dL (0.6-1.3); Estimated Creatinine Clearance 75.9 mL/min (>60); Free T4 (Free Thyroxine) 1.14 ng/dL (0.89-1.76); Globulin 1.9 gm/dL (2.3-3.5); Glucose 217 mg/dL (74-106); HDL Cholesterol 71 mg/dL (40-60); LDL Cholesterol,Calculated 97 mg/dL (0-130); Magnesium 1.8 mg/dL (1.6-2.6); Osmolality,Calculated 288 (275-295); Phosphorous 3.9 mg/dL (2.4-5.1); Potassium 3.4 mMol/L (3.4-5.1); Sodium 142 mMol/L (136-145); Thyroid Stimulating Hormone 1.32 uIU/mL (0.55-4.78); Total Protein 5.6 gm/dL (5.7-8.2); Triglycerides 224 mg/dL (30-150); eGFR > 60 See Note
[2025-05-01] MEDS: CLOPIDOGREL BISULFATE 75 MG TABLET PO (08:00)
[2025-05-01] MEDS: ASPIRIN EC 81 MG TABEC PO (08:01)
[2025-05-01] MEDS: INSULIN LISPRO (AdmeLOG) 1 UNIT/0.01 ML UNIT SC ×3 (08:01→17:02)
[2025-05-01] MEDS: INSULIN DEGLUDEC 5 UNIT/0.05 ML (PER 5 UNITS) 10 UNIT SC (08:02)
[2025-05-01 10:26] LABS: Glucose Estimated Average 303 mg/dL (80-131); Hemoglobin A1C 12.2 % Hgb (4.8-6.0)
[2025-05-01] MEDS: Magnesium Sulfate 2 GM Ivpb 2 GM/50 ML BAG IV (11:04)
--- NOTE | 2025-05-01 12:22 | PC.SS ---
Bridget Cesar is a 64-year-old female admitted to [facility] for Stroke R/O. SS conducted bedside contact with the patient to complete initial assessment and to discuss discharge planning. Role and reason explained. Patient confirmed demographic information. Patient identifies dtr Alayna Escalante [phone] as her surrogate decision maker. Pt states she is able to complete all ADL?s independently. No need for any source of DME. Pts PCP is Dr. Chacon (last visit 2 weeks ago). Pharmacy of choice is [facility]. Discharge options discussed and the pt wishes to return home.? Family will provide transportation upon DC. No further intervention required at this time, social sciences lecturer would be available to address any further concerns. DC Plan: Home Contact: luis Catalan Address: Confirmed on face sheet PCP: Oswaldo
--- NOTE | 2025-05-01 13:56 | PD.RESPRO ---
Documentation for date of: 05/01/25 Senior resident attestation: Patient evaluated and examined at the bedside, plan of care discussed with rest of the team including my attending physician, except as noted. Patient is a 61-year-old female past medical history of diverticulitis, JESSICA, and hypertension, who presented with recurrent episodes of double vision and dizziness. Patient reported episodes of dizziness and double vision, and transiently decreased vision from the left eye which improved shortly after. Patient had the symptoms yesterday which improved after few minutes and later had another episode when she was driving. NIHSS score was 0 as documented by teleneuro, patient was determined not a candidate for thrombolysis, but recommending admission and close observation as well as MRI for high risk TIA symptoms. Symptoms are concerning for thromboembolic phenomena as well as posterior circulation stroke. Pending MRI. #Rule out stroke?CT and CTA were done in the ER, will admit patient for MRI. Echocardiogram and neurology evaluation. Quresh PGY3 Subjective Subjective Interval history: No acute overnight events. Patient seen examined at bedside. Patient reports no further episodes of dizziness and diplopia. No new complaints. Does endorse prior episode of lip numbness about 3 to 4 weeks ago with a total of 3 episodes only lasting about a few minutes each and spontaneously resolved. Has not had any lip numbness since. Vitals and labs reviewed, potassium 3.4, repleted with 40 mEq. Magnesium 1.8, repleted with 2 g IV. AM glucose 217. A1c 12.2. Pending MRI and TTE. Continue monitor for further symptoms. Dietitian consulted for diabetes education. Continue aspirin and Plavix and statin. Exam Vital Signs Temp Pulse Resp BP Pulse Ox O2 Del Method FiO2 97.8 F 69 16 150/81 H 98 Room Air 30 05/01/25 12:00 05/01/25 12:00 05/01/25 12:00 05/01/25 12:00 05/01/25 12:00 05/01/25 12:00 05/01/25 02:57 Narrative Exam GENERAL: AOx3, no acute distress HEENT: NC/AT, mucous membranes moist, bilateral sclera anicteric CARDIOVASCULAR: regular rate and rhythm, S1/S2 present, no murmurs appreciated PULMONARY: clear to auscultation bilaterally, no rales/rhonchi/wheezes ABDOMINAL: soft, non-tender, non-distended, no rebound/guarding, bowel sounds present EXTREMITIES: no peripheral edema SKIN: warm and dry, intact, no rashes NEURO: CN II-XII grossly intact, no focal deficits, alert, following commands Objective Labs 05/02/25 05:05 05/02/25 05:05 Labs: Laboratory Results - last 24 hr 04/30/25 04/30/25 05/01/25 14:30 15:10 04:50 WBC 6.5 6.0 RBC 4.57 4.23 Hgb 13.8 12.7 Hct 39.4 36.5 MCV 86 86 MCH 30.2 30.0 MCHC 35.0 34.8 RDW Std Deviation 37.8 38.0 Plt Count 171 135 L D Neut % (Auto) 66 58 Lymph % (Auto) 25 31 Motley % (Auto) 6 7 Eos % (Auto) 2 4 Baso % (Auto) 0 0 Neut # (Auto) 4.3 3.5 Lymph # (Auto) 1.7 1.9 Motley # (Auto) 0.4 0.4 Eos # (Auto) 0.1 0.2 Baso # (Auto) 0.0 0.0 Immature Gran # (Auto) 0.02 H 0.01 H Absolute Nucleated RBC 0.00 0.00 Immature Gran % 0 0 Nucleated RBC % 0 0 PT 9.9 INR 0.9 APTT 25.0 Sodium 137 142 Potassium 4.6 3.4 D Chloride 100 105 Carbon Dioxide 29.9 28.0 Anion Gap 7 9 BUN 6 L 8 L Creatinine 0.8 0.6 Estim Creat Clear Calc 56.9 L 75.9 eGFR > 60 > 60 BUN/Creatinine Ratio 8 L 13 Glucose [address] Glu mg/dL 303 H Hemoglobin A1c 12.2 H Calculated Osmolality 285 288 Calcium 9.5 8.6 Corrected Calcium 9.5 8.8 Phosphorus 3.9 Magnesium 2.0 1.8 Total Bilirubin 0.8 0.7 AST 14 14 ALT 11 10 Alkaline Phosphatase 100 83 Troponin I < 0.020 Total Protein 6.7 5.6 L Albumin 4.4 3.7 D Globulin 2.3 1.9 L Albumin/Globulin Ratio 1.9 1.9 Triglycerides 224 H Cholesterol 213 H LDL Cholesterol, Calc 97 HDL Cholesterol 71 H Cholesterol/HDL Ratio 3.0 L TSH 1.32 Free T4 1.14 Ur Collection Type Clean Catch Urine Color Yellow Urine Clarity Clear Urine pH 6.5 Ur Specific [place] 1.026 Urine Protein Trace Urine Glucose (UA) Negative Urine Ketones 1+ A Urine Blood 2+ A Urine Nitrite Negative Urine Bilirubin Negative Urine Urobilinogen (Auto) Negative Ur Leukocyte Esterase Negative Urine RBC 146 H Urine WBC 7 H Ur Squamous Epith Cells < 1 Urine Bacteria None Ur Culture Indicated? Not Indicated Urine Opiates Screen Negative Urine Fentanyl Screen Negative Ur Barbiturates Screen Negative U Amphetamin/Meth Scrn Negative U Benzodiazepines Scrn Negative U Cocaine Metab Screen Negative U Marijuana (THC) Screen Negative Quality Measures Quality Measures none Assessment & Plan Assessment Current Active Medications: Generic Name Dose Route Start Last Admin Trade Name Freq PRN Reason Stop Dose Admin Acetaminophen 650 mg 04/30/25 17:19 Acetaminophen 325 Mg Tablet PO 05/30/25 17:18 Q6H PRN Fever >100.4 or pain Aspirin 81 mg 05/01/25 09:00 05/01/25 08:01 Aspirin Ec 81 Mg Tabec PO 05/31/25 08:59 81 mg QDAY RONDA Administration Atorvastatin Calcium 80 mg 04/30/25 21:00 04/30/25 20:09 Atorvastatin Calcium 20 Mg Tablet PO 05/30/25 20:59 80 mg HS RONDA Administration Clopidogrel Bisulfate 75 mg 05/01/25 09:00 05/01/25 08:00 Clopidogrel Bisulfate 75 Mg Tablet PO 05/31/25 08:59 75 mg QDAY RONDA Administration Dextrose 25 ml 04/30/25 17:27 Dextrose 50%-Water Inj 50 Ml Syringe IV 05/30/25 17:26 Q15MIN PRN BG 50-70 responsive npo pt Dextrose 50 ml 04/30/25 17:27 Dextrose 50%-Water Inj 50 Ml Syringe IV 05/30/25 17:26 Q15MIN PRN BG <50 OR BG <70 & pt unresponsive Glucagon 1 mg 04/30/25 17:27 Glucagon Inj 1 Mg Vial IM Q15MIN PRN BG <70, and no IV access Insulin Degludec 10 unit 05/01/25 09:00 05/01/25 08:02 Insulin Degludec 5 Unit/0.05 Ml (Per 5 Units) SC 05/31/25 08:59 10 unit QDAY RONDA Administration Insulin Human Lispro 0 unit 05/01/25 07:30 05/01/25 11:19 Insulin Lispro (Admelog) 1 Unit/0.01 Ml Unit SC 05/31/25 07:29 5 unit AC RONDA Administration Protocol Labetalol HCl 10 mg 04/30/25 18:12 Labetalol Inj 5 Mg/Ml Vial 20 Ml IVP Q15M PRN SBP > 200 Ondansetron HCl 4 mg 04/30/25 17:19 Ondansetron Inj 2 Mg/Ml Inj 2 Ml IVP 05/30/25 17:18 Q6H PRN NAUSEA OR VOMITING Protocol Sennosides 1 tab 04/30/25 17:19 Senna Tablet PO 05/30/25 17:18 QDAY PRN constipation Protocol Plan Bridget Cesar 64F pmhx significant for IDDM2, diabetic neuropathy, JESSICA and hypertension who presents to [facility] ED 04/30 with dizziness and double vision, admitted for stroke rule out, found to be hyperglycemic. #Stroke r/o #Dizziness #Diplopia Presents with 3 episodes of acute dizziness and diplopia, left eye diplopia tested only during second episode. On admission, hypertensive with glucose 358. Chest x-ray mild vascular congestion no lobar pneumonia. CT head negative for acute hemorrhage, mass effect or midline shift. Head neck CTA showed 14 mm right thyroid nodule, no significant neck arterial stenosis or cerebral large vessel arterial occlusions or thrombus. EKG shows sinus rhythm rate 63 QTc 415 Ddx likely 2/2 hyperglycemia vs CVA/TIA vs sick sinus syndrome s/p Plavix 300 mg x 1 and ASA 81 mg x 1 in ED Plan: - F/u MRI, TTE - Continue atorvastatin 80 mg qhs - ASA 81 mg QD and Plavix 75 mg QD for 21 days (04/30- ), then transition to ASA only - q4h neurochecks - PT and ST consulted - Aspirations precautions and head of bed elevation 30 deg - Permissive up to 220/110mmHg for 24 hours followed by gradual reduction in BP toward goal normotension avoiding drop in BP >15% daily - Neurology consulted, recs appreciated #Hyperglycemia #IDDM2 #Diabetic neuropathy History of insulin-dependent diabetes, uses 25 units of insulin glargine in AM. Had Lashawn 3 however fell off a few days ago but readings prior to were always read as high. Blood glucose on admission 358. Also reports decreased sensation in bilateral feet, only mild. 04/2025 A1c 12.2, triglycerides 224, cholesterol 213, LDL 97, HDL 71 Plan: - Degludac 10u and SSI step 1 - Adjust insulin regimen as necessary #JESSICA Per patient history. Reports previously using CPAP machine at home however broke a while ago. Plan: - CPAP qhs ordered #Essential HTN States she had HTN in the past, has never been on antihypertensives. Plan: - Permissive HTN per teleneurology for stroke r/o - CTM BP #Urinary Frequency #Urinary Urgency Patient reports 2 month-long history of urinary frequency and urgency, pain on urination occasionally. Has previously had 2 UTIs within the past 1 to 2 years in which resolved with antibiotics. Admission UA 1+ ketones, 2+ blood, 146 RBC, 7 WBC Current low suspicion for urinary tract infection with UA negative and likely secondary to hyperglycemia Plan: - CTM symptoms - Consider abx if symptoms become more severe #14mm R thyroid nodule Incidental finding on head and neck CTA. TSH and T4 within normal limits. Plan: - No inpatient intervention at this time - Recommend further outpatient workup and management Hospital management: Lines: PIV Diet: NPO until passes bedside swallow Bowel: Senna prn GI prophylaxis: not indicated DVT prophylaxis: SCDs iso stroke r/o Disposition: tele for stroke r/o CODE STATUS: FULL CODE Plan of care discussed with attending Dr. Durant, and PGY-3 Dr. Vila. Екатерина Bonner, DO PGY-1 Internal Medicine Attending Provider Attestation/Addendum I have examined the patient, reviewed labs and imaging findings, discussed the case with the resident(s), and reviewed entered orders. I agree with the plan of care as outlined in this note, with these additional summaries/recommendations: Patient is a 64-year-old female with a medical history of JESSICA, primary hypertension, uncontrolled diabetes mellitus type 2, neuropathy, dyslipidemia, and vitamin D deficiency presents to [facility] emergency department on 04/30/2025 with chief complaints of double vision/dizziness and unsteady gait. Patient seen at bedside. No acute overnight events. She has no new symptoms to report today. Patient admitted for CVA rule out. Suspect TIA given patient's transient neurologic symptoms. Status post loading doses of Plavix and aspirin. Continue aspirin 81 mg p.o. daily and Plavix 75 mg p.o. daily x 21 days then aspirin monotherapy. Continue atorvastatin 80 mg p.o. daily. MRI brain, transthoracic echocardiogram, and PT pending. Consult in-house neurology, recommendations appreciated. Patient has uncontrolled diabetes mellitus type 2 with hyperglycemia. On admission blood glucose 358. She has poor understanding of diabetes management and diabetic education ordered. Continue basal and bolus insulin with Accu-Cheks. Target blood sugar of 140-180 while hospitalized. A1C 12.2%. Okay to resume home antihypertensives. CPAP at night for obstructive sleep apnea. Patient needs repeat sleep study outpatient. Patient updated on the plan and in agreement. All questions answered to satisfaction. Please see residents note for additional details and management. Dr. Carleen MD
--- NOTE | 2025-05-01 15:59 | PC.SS ---
Rounding: Pending MRI, DC plan home poss tomorrow 05/02
[2025-05-01] MEDS: ATORVASTATIN CALCIUM 20 MG TABLET 80 MG PO (20:06)
[2025-05-02] VITALS (8 sets, daily range): BP systolic 132–144; BP diastolic 76–87; PULSE 60–77; RESP 12–98; TEMP 36.1–36.8; O2SAT 94–100; BMI 22.3; BMI 22.4
--- NOTE | 2025-05-02 | XR_ITS ---
Examinations: MRI Brain without intravenous contrast. MRA brain without intravenous contrast. MRA carotids without intravenous contrast 3-D vascular reconstructions Date and time of exam: May 02, T2 thousand 25, 1215 hours Indication: Stroke alert April 30, 2025, dizziness, vertigo, left eye double vision lasting 5 minutes Technique: Multiple axial and sagittal images of the brain have been obtained MRA brain carotid images without contrast obtained, including 3-D postprocessing, vascular maximum intensity projection images Findings: Sellaturcica is not enlarged. The optic chiasm and infundibular stalk are not remarkable. Prepontine and interpeduncular cisterns are not enlarged. No localized enlargement of the medulla or lydia. Fourth ventricle and cerebellar tonsils normal in position. Subacute hemorrhage is not seen. Fourth ventricle is midline. Mass in the cerebellopontine angle region is not evident. 7th and 8th nerve complexes exhibits symmetry. Globes are symmetrical with no retro-orbital mass. Increased white matter signal evident, punctate foci increased signal in the white matter Diffusion-weighted images demonstrate no focus of restricted diffusion Mass-effect upon the ventricular system is not identified. MRA carotid images no significant stenoses. MRA brain images no large vessel occlusions Impression: Multiple punctate foci increased signal in the white matter, differential would include accelerated chronic microvascular white matter change, demyelinating disease
[2025-05-02 06:03] LABS: Basophils # (Auto) 0.0 Thou/mm3 (0.0-0.2); Basophils % (Auto) 0 % (0-2.5); Eosinophils # (Auto) 0.3 Thou/mm3 (0.0-0.5); Eosinophils % (Auto) 5 % (0-10); Hematocrit 37.2 % (36.0-46.0); Hemoglobin 13.2 g/dL (12.0-16.0); Immature Granulocytes Auto 0.01 Thou/mm3 (0.00-0.00); Lymphocytes # (Auto) 1.8 Thou/mm3 (1.0-4.8); Lymphocytes % (Auto) 31 % (10-50); Mean Corpuscular HGB Conc 35.5 g/dl (31.0-37.0); Mean Corpuscular Hemoglobin 31.0 pg (25.0-35.0); Mean Corpuscular Volume 87 fL (80-100); Monocytes # (Auto) 0.5 Thou/mm3 (0.0-0.8); Monocytes % (Auto) 8 % (0-12); Neutrophils # (Auto) 3.2 Thou/mm3 (1.8-7.7); Neutrophils % (Auto) 56 % (37-80); Nucleated Red Blood Cell # 0.00 Thou/mm3 (0.00-0.00); Nucleated Red Blood Cell % 0 /100 WBC (0); Platelet Count 163 Thou/mm3 (140-440); RDW Standard Deviation 39.3 fL (36.4-46.3); Red Blood Count 4.26 Miln/mm3 (4.00-5.20); White Blood Count 5.7 Thou/mm3 (3.6-11.0)
[2025-05-02 06:33] LABS: Alanine Aminotransferase 10 U/L (10-49); Albumin, Serum 3.8 gm/dL (3.4-4.8); Albumin/Globulin Ratio 1.7 (1.2-2.2); Alkaline Phosphatase 82 U/L (46-116); Anion Gap 8 (7-16); Aspartate Amino Transferase 15 U/L (0-34); BUN/Creatinine Ratio 15 Ratio (12-20); Bilirubin,Total 0.7 mg/dL (0.3-1.2); Blood Urea Nitrogen 9 mg/dL (9-23); Calcium 9.5 mg/dL (8.3-10.6); Calcium (Corrected) 9.7 mg/dL (8.5-10.1); Carbon Dioxide 28.5 mMol/L (20.0-31.0); Chloride 104 mMol/L (98-107); Creatinine (Component) 0.6 mg/dL (0.6-1.3); Estimated Creatinine Clearance 75.9 mL/min (>60); Globulin 2.2 gm/dL (2.3-3.5); Glucose 223 mg/dL (74-106); Magnesium 1.8 mg/dL (1.6-2.6); Osmolality,Calculated 285 (275-295); Potassium 4.2 mMol/L (3.4-5.1); Sodium 140 mMol/L (136-145); Total Protein 6.0 gm/dL (5.7-8.2); eGFR > 60 See Note
[2025-05-02] MEDS: Magnesium Sulfate 2 GM Ivpb 2 GM/50 ML BAG IV (08:59)
[2025-05-02] MEDS: INSULIN DEGLUDEC 5 UNIT/0.05 ML (PER 5 UNITS) 10 UNIT SC (08:59)
[2025-05-02] MEDS: INSULIN LISPRO (AdmeLOG) 1 UNIT/0.01 ML UNIT SC ×3 (08:59→17:34)
[2025-05-02] MEDS: CLOPIDOGREL BISULFATE 75 MG TABLET PO (09:00)
[2025-05-02] MEDS: ASPIRIN EC 81 MG TABEC PO (09:00)
--- NOTE | 2025-05-02 11:11 | PC.SS ---
Rounding: Pending MRI, DC plan home
--- NOTE | 2025-05-02 12:20 | PC.PT ---
PT eval only. Patient was xI with bed mobility, transfers, and ambulation with no AD. Patient is safe to ambulate to the bathroom and in the halls with no staff and no AD. RN made aware.
--- NOTE | 2025-05-02 12:31 | PC.CC ---
Attempted to see patient for DM education per MD request. Patient not in room. Will follow-up.
--- NOTE | 2025-05-02 16:02 | ESDS_ITS ---
<Statement entered by Elio Castillo MD - 05/02/25 17:23> Patient was seen and evaluated at bedside this morning. No acute overnight events. MRI did not show any acute infarct, only showed multiple punctate foci of increased signal in the white matter and neurology recommended to be discharged on aspirin and statin. Believe patient's uncontrolled diabetes could also have been contribution patient's symptoms as well as sleep apnea as well. Patient was given diabetic education and supplies as well. Patient's insulin regimen was changed to 15 units of glargine daily and 3 units of lispro 3 times daily with meals. It was emphasized to the patient that she needed to follow-up outpatient for a thyroid nodule and to go see endocrinology for better diabetes control. I have reviewed the note and agree with the resident's assessment & plan with exceptions as below. I have personally reviewed labs, imaging, home meds/prior records, examined the patient, formulated and discussed management plan with my attending Case disclosed with attending Dr. Carleen Castillo PGY2 Disclaimer: Even though this this note was dictated by speech recognition and even though it was carefully revised there may still be minor errors in lead quality technician due to voice recognition software. Planned Discharge Date 05/02/25 DS: Providers Provider Date of admission: 04/30/25 17:41 Primary care physician: Thom Chacon MD Admitting Provider: Richie Durant MD Attending Provider on Admission: Richie Durant MD Consults: 04/30/25 14:27 Consult to Neurology / Tele-Neurology Routine Comment: Consulting Provider: [facility] 04/30/25 17:25 Referral Physical Therapy Routine Comment: Physician Instructions: Referral Speech Therapy Routine Comment: 04/30/25 19:33 Consult to Neurology / Tele-Neurology Routine Comment: Consulting Provider: David Mason 05/01/25 14:32 Referral Registered Dietitian Routine Comment: diabetes education pls Attending Provider on DC: Richie Durant MD Discharging Provider: Richie Durant MD DS: Diagnosis Problem List Completed Was Problem List Reviewed/Reconciled?: Yes Hospital Course Hospital Course Hospital course: Summary: Bridget Cesar 64F pmhx significant for IDDM2, diabetic neuropathy, JESSICA and hypertension who presents to [facility] ED 04/30 with dizziness and double vision, admitted for TIA vs stroke rule out, found to be hyperglycemic glucose 358. Patient experienced three separate less than 5 minutes of episodes of dizziness with diplopia over a few days prior to admission which all resolved spontaneously, not precipitated by head movement or sitting/standing position. Denies dehydration. Patient received Plavix, ASA and statin and underwent stroke workup with MRI showing no acute stroke but multiple punctate foci increased signal in the white matter. TTE showed bubble study negative for any PFO or ASD. Normal LV size, wall thickness. There is grade I diastolic dysfunction. Estimated EF 55-60%. RV normal in size and systolic function. Normal RVSP. Trace MR and TR. No pericardial effusion. Overall, symptoms are likely secondary to hyperglycemia. Patient also reports home Lashawn readings consistently read high and A1c is 12.2, increased from 7.2 months ago. Patient's insulin regimen adjusted to 15u in AM and 3u during meals. Patient also endorsed urinary urgency and frequency on admission with little output and occasionally has pain during urination for the past 2 months however UA unremarkable and symptoms likely 2/2 hyperglycemia. Of note, on imaging 14mm R thyroid nodule was incidentally found on CTA head and neck and patient was notified and recommended. to follow up outpatient. On discharge, patient experienced no further episodes of dizziness of diplopia, labs and vitals reviewed to be stable and patient is ready to be discharged. Imaging: Head CT negative for acute hemorrhage, mass effect or midline shift Head neck CTA showed 14 mm right thyroid nodule, no significant neck arterial stenosis or cerebral large vessel arterial occlusions or thrombus. EKG shows sinus rhythm rate 63 QTc 415 Brain MRI with MRA showed multiple punctate foci increased signal in the white matter, no significant carotid stenosis, no large vessel occlusions TTE showed bubble study negative for any PFO or ASD. Normal LV size, wall thickness. There is grade I diastolic dysfunction. Estimated EF 55-60%. RV normal in size and systolic function. Normal RVSP. Trace MR and TR. No pericardial effusion. Discharge Recommendations: - Please take all medications as prescribed - START insulin glargine 15u daily and 3u lispro with meals - START aspirin 81 mg daily and atorvastatin 80 mg at bedtime - STOP metformin - Continue all home medications except as above - Please follow up with your PCP within one week of discharge for hospital follow up - Please follow up with your neurologist within one week of discharge - If your symptoms worsen, please seek immediate medical attention and return to your nearest emergency room. - If you do not have a PCP, you may follow up at the [facility] at [address], [facility] [address], Hospital Diagnoses: #Stroke, ruled out #Dizziness #Diplopia #Hyperglycemia #IDDM2 #Diabetic neuropathy #JESSICA #Essential HTN #Urinary Frequency #Urinary Urgency #14mm R thyroid nodule Екатерина Bonner, DO Internal Medicine, PGY-1 Plan and care discussed with attending Dr. Durant and PGY-2 Dr. Bryan. Time Spent with Patient Time attestation: Total time spent providing and/or coordinating discharge services: Time spent: Greater than 30 minutes Exam Vital Signs Temp Pulse Resp BP Pulse Ox O2 Del Method FiO2 96.9 F 65 15 133/80 H 94 L Room Air 30 05/02/25 12:00 05/02/25 12:00 05/02/25 12:00 05/02/25 12:00 05/02/25 12:00 05/02/25 12:00 05/01/25 02:57 Narrative Exam GENERAL: AOx3, no acute distress HEENT: NC/AT, mucous membranes moist, bilateral sclera anicteric CARDIOVASCULAR: regular rate and rhythm, S1/S2 present, no murmurs appreciated PULMONARY: clear to auscultation bilaterally, no rales/rhonchi/wheezes ABDOMINAL: soft, non-tender, non-distended, no rebound/guarding, bowel sounds present EXTREMITIES: no peripheral edema SKIN: warm and dry, intact, no rashes NEURO: CN II-XII grossly intact, no focal deficits, alert, following commands Discharge Plan Plan Patient Disposition: HOME (Self Care) Care Plan Goals: Follow-up with primary care physician within 2 to 3 days upon discharge Follow-up with neurologist within 5 to 7 days upon discharge Follow-up with endocrinology within 5 to 7 days for better diabetes control. You have been started on insulin glargine 15 units daily You have been started on insulin lispro 3 units with meals. You have been started on aspirin 81 mg daily and atorvastatin 80 mg at bedtime. Please follow-up with your primary care physician concerning echo results. Would recommend outpatient sleep study for obstructive sleep apnea Would recommend tighter control of blood glucose. Continue taking all other home medications as needed Please come back to the ER if symptoms persist or worsen. Prescriptions/Referrals Prescriptions/Med Rec: New insulin glargine [Basaglar KwikPen U-100 Insulin] 100 unit/mL (3 mL) insulin pen 15 unit subcut QAM Qty: 15 0RF atorvastatin [Lipitor] 80 mg tablet 80 mg PO QPM Qty: 30 0RF aspirin [Adult Low Dose Aspirin] 81 mg tablet,delayed release (DR/EC) 81 mg PO QDAY Qty: 30 0RF insulin lispro [Humalog KwikPen Insulin] 100 unit/mL insulin pen 3 unit subcut TID Qty: 15 0RF (DME) blood-glucose meter Misc See Rx Instructions .Route Qty: 1 0RF Rx Instructions: As directed (DME) Blood Glucose Test Strip See Rx Instructions .Route Qty: 50 0RF Rx Instructions: As directed (DME) pen needle, diabetic [Comfort EZ Pen Austin] 29 gauge x 1/2 needle See Rx Instructions .Route Qty: 100 0RF Rx Instructions: Inject 4 times daily (DME) lancets [Color Lancets] 21 gauge misc See Rx Instructions .Route Qty: 100 0RF Rx Instructions: 4 times daily Continued gabapentin 100 mg capsule 100 mg PO DAILY Patient Comments: TAKE ONE CAPSULE BY MOUTH TWICE DAILY FOR NERVE PAIN ergocalciferol (vitamin D2) 1,250 mcg (50,000 unit) capsule 1,250 mcg PO .MON Patient Comments: TAKE ONE CAPSULE BY MOUTH EVERY WEEK VITAMIN (DME) FreeStyle Zaria 3 Plus Sensor Device Patient Comments: DIRECTED Discontinued metformin 500 mg tablet,ER zain.[email or web address] 24 hr 500 mg PO BID Patient Comments: TAKE ONE TABLET BY MOUTH TWICE DAILY WITH FOOD FOR DIABETES insulin glargine [Lantus Solostar U-100 Insulin] 100 unit/mL (3 mL) insulin pen 25 unit SUBCUT .AM Patient Comments: INJECT 25 UNITS SUBCUTANEOUSLY EVERY EVENING FOR DIABETES Referrals: Oswaldo (PCP)Thom MD [Primary Care Provider, Family Practice] Patient/Caregiver Discharge Instructions Other Discharge Activity Instructions:: Follow-up with primary care physician within 2 to 3 days upon discharge Follow-up with neurologist within 5 to 7 days upon discharge Follow-up with endocrinology within 5 to 7 days for better diabetes control. You have been started on insulin glargine 15 units daily You have been started on insulin lispro 3 units with meals. You have been started on aspirin 81 mg daily and atorvastatin 80 mg at bedtime. Please follow-up with your primary care physician concerning echo results. Would recommend outpatient sleep study for obstructive sleep apnea Would recommend tighter control of blood glucose. Continue taking all other home medications as needed Please come back to the ER if symptoms persist or worsen. Education Materials: Diabetes: Activity Tips, Discharge Instructions for ..., Diabetes: Meal Planning Print Language: Iranian Stand Alone Forms: Veronica Award Info., Patient Portal Info Letter, Work/Release Restrictions Discharge Order Discharge Orders: Discharge (Routine); Ordered 05/02/25 Ordered By: Elio Castillo Quality Discharge Quality Measures VTE prophylaxis Attestestation Attestation I have examined the patient, reviewed labs and imaging findings, discussed the case with the resident(s), and reviewed entered orders. I agree with the plan of care as outlined in this note. Time Spent: [address] Carleen MD
--- NOTE | 2025-05-02 16:03 | ESPR_ITS ---
Documentation for date of: 05/02/25 Subjective Subjective Interval history: Patient examined at bedside. Vitals are stable, glucose this morning 223, MRI was negative for any ischemic changes, hemorrhage. Positive for findings of punctate foci. Patient is denying any recurrent episodes of the blurry vision. States that it usually is correlated with high blood pressure reads. She states that she has poor control of glucose and last visit to PCP about 3 weeks ago resulted in an increase of her long-acting insulin of about 10 units. Home blood sugar readings are averaging about 250. She is poorly controlled diabetic. Continue aspirin 81mg daily and atorvastatin 80 mg. Counseled on strict blood sugar control and exercise. Patient to follow up outpatient for echo results. Exam Vital Signs Temp Pulse Resp BP Pulse Ox O2 Del Method FiO2 96.9 F 65 15 133/80 H 94 L Room Air 30 05/02/25 12:00 05/02/25 12:00 05/02/25 12:00 05/02/25 12:00 05/02/25 12:00 05/02/25 12:00 05/01/25 02:57 Narrative Exam GENERAL APPEARANCE: Well kempt, well hydrated, well-nourished in no acute distress. HEENT: Normocephalic, atraumatic, extraocular movements intact. Pupils: Equal reacting to light and accommodation NECK: Supple, no JVD or bruits. CARDIOVASULAR: Heart: S1, S2 heard, regular without S3-S4 or murmur no rubs or gallops. LUNGS/CHEST: Clear to auscultation bilaterally. No rails, rhonchi, or wheezing. Normal inspection. ABDOMEN: Soft, nontender, with normal bowel sounds. No pulsatile masses. No rebound, rigidity, or guarding. Normal inspection and palpation. EXTREMITIES: Normal inspection and palpation. No edema, clubbing or cyanosis. SKIN: Warm and dry without rashes. Normal inspection. MUSCULOSKELETAL: No cervical, thoracic, lumbar or midline bony tenderness. Normal inspection. NEURO: Alert, awake and oriented x3. Cranial nerves: II through XII grossly intact. Speech and language: Normal with no dysarthria or dysphasia. Motor system: Tone and bulk: Normal: Strength: 5 out of 5 in all 4 extremities; No pronator drift noted. Deep tendon reflexes: 2+ bilaterally symmetrical. Plantar reflex: Downgoing bilaterally. Sensory system: Intact to all modalities of sensation bilaterally. Coordination: Intact to [id number] and mbcb-[id number] test bilaterally. No ataxia, no dysmetria, or dysdiadochokinesia noted. No intention tremors noted. Gait: Normal. Toe, heel, tandem walk all are normal. Romberg: Negative. No signs of meningeal irritation noted. PSYCHIATRIC: Normal mood and affect. Objective Labs 05/02/25 05:05 05/02/25 05:05 Labs: Laboratory Results - last 24 hr 05/02/25 05:05 WBC 5.7 RBC 4.26 Hgb 13.2 Hct 37.2 MCV 87 MCH 31.0 MCHC 35.5 RDW Std Deviation 39.3 Plt Count 163 D Neut % (Auto) 56 Lymph % (Auto) 31 [place] % (Auto) 8 Eos % (Auto) 5 Baso % (Auto) 0 Neut # (Auto) 3.2 Lymph # (Auto) 1.8 [place] # (Auto) 0.5 Eos # (Auto) 0.3 Baso # (Auto) 0.0 Immature Gran # (Auto) 0.01 H Absolute Nucleated RBC 0.00 Immature Gran % 0 Nucleated RBC % 0 Sodium 140 Potassium 4.2 D Chloride 104 Carbon Dioxide 28.5 Anion Gap 8 BUN 9 Creatinine 0.6 Estim Creat Clear Calc 75.9 eGFR > 60 BUN/Creatinine Ratio 15 Glucose 223 H Calculated Osmolality 285 Calcium 9.5 Corrected Calcium 9.7 Magnesium 1.8 Total Bilirubin 0.7 AST 15 ALT 10 Alkaline Phosphatase 82 Total Protein 6.0 Albumin 3.8 Globulin 2.2 L Albumin/Globulin Ratio 1.7 Quality Measures Quality Measures none Assessment & Plan Assessment Current Active Medications: Generic Name Dose Route Start Last Admin Trade Name Freq PRN Reason Stop Dose Admin Acetaminophen 650 mg 04/30/25 17:19 Acetaminophen 325 Mg Tablet PO 05/30/25 17:18 Q6H PRN Fever >100.4 or pain Aspirin 81 mg 05/01/25 09:00 05/02/25 09:00 Aspirin Ec 81 Mg Tabec PO 05/31/25 08:59 81 mg QDAY RONDA Administration Atorvastatin Calcium 80 mg 04/30/25 21:00 05/01/25 20:06 Atorvastatin Calcium 20 Mg Tablet PO 05/30/25 20:59 80 mg HS RONDA Administration Clopidogrel Bisulfate 75 mg 05/01/25 09:00 05/02/25 09:00 Clopidogrel Bisulfate 75 Mg Tablet PO 05/31/25 08:59 75 mg QDAY RONDA Administration Dextrose 25 ml 04/30/25 17:27 Dextrose 50%-Water Inj 50 Ml Syringe IV 05/30/25 17:26 Q15MIN PRN BG 50-70 responsive npo pt Dextrose 50 ml 04/30/25 17:27 Dextrose 50%-Water Inj 50 Ml Syringe IV 05/30/25 17:26 Q15MIN PRN BG <50 OR BG <70 & pt unresponsive Glucagon 1 mg 04/30/25 17:27 Glucagon Inj 1 Mg Vial IM Q15MIN PRN BG <70, and no IV access Insulin Degludec 10 unit 05/01/25 09:00 05/02/25 08:59 Insulin Degludec 5 Unit/0.05 Ml (Per 5 Units) SC 05/31/25 08:59 10 unit QDAY RONDA Administration Insulin Human Lispro 0 unit 05/01/25 07:30 05/02/25 12:04 Insulin Lispro (Admelog) 1 Unit/0.01 Ml Unit SC 05/31/25 07:29 4 unit AC RONDA Administration Protocol Labetalol HCl 10 mg 04/30/25 18:12 Labetalol Inj 5 Mg/Ml Vial 20 Ml IVP Q15M PRN SBP > 200 Ondansetron HCl 4 mg 04/30/25 17:19 Ondansetron Inj 2 Mg/Ml Inj 2 Ml IVP 05/30/25 17:18 Q6H PRN NAUSEA OR VOMITING Protocol Sennosides 1 tab 04/30/25 17:19 Senna Tablet PO 05/30/25 17:18 QDAY PRN constipation Protocol Plan Bridget Cesar 64F pmhx significant for IDDM2, diabetic neuropathy, JESSICA and hypertension who presented with dizziness and double vision. She is poorly controlled type II diabetic with sugars ranging from 200?300 on average at home. She was recently increased on her long-acting insulin dose by 10 units. She does correlate these symptoms with high blood sugars. Patient was admitted for rule out of stroke. #Blurry vision (resolved) # Hyperglycemia vs #TIA Blurry vision secondary to TIA versus hyperglycemia. A1c on this admission 12.2. Previous reading from 12/17 was 7.2. Glucose on admission in the ED was 358. He had CT head, CTA negative for acute hemorrhage, LVO. MRI was negative for ischemic changes but found to have punctate foci. He had NIHSS score on admission was 0. Triglycerides 224, cholesterol 213, LDL 97, HDL 71. - Continue aspirin 81 mg daily - Atorvastatin 80 mg daily -PT - Counseled on strict blood sugar control and exercise #IDDM2 #Diabetic neuropathy - Degludac 10u and SSI step 1 - Adjust insulin regimen to optimize blood sugars -Gabapentin 100 mg daily #JESSICA #14mm R thyroid nodule Primary care team to manage above conditions and ongoing care needs. The patient's management plan was discussed with my attending physician Dr. Mason. Tania Stoner, PGY-2 Attending Provider Attestation/Addendum I personally have seen and examined the patient at the bedside and I agree with resident's findings, assessment and plan of care. Patient presenting symptoms are most consistent with TIA secondary to poorly controlled diabetes mellitus. Advised her about the importance of exercise and lifestyle changes to prevent recurrence along with aspirin and statin. Will see her back in 2 weeks upon discharge. Reassurance given to the patient regarding the negative workup in terms of etiology of the TIA.
[2025-05-02] MEDS: INFLUENZA VIRUS QUADRIVALENT 0.5 ML SYRINGE IMi (17:40)
== END 2025-05-02 18:22 | disposition home or self-care (01) ==
LOC: SERX 15:09 → S2NX 22:42 → SERHOLD 05-02 05:46 → S2NX 05-02 05:47
PROVIDERS: Admitting Provider Student in an Organized Health Care Education/Training Program; Emergency Provider Nurse Practitioner Family; PCP Family Medicine; Visit Provider Student in an Organized Health Care Education/Training Program
DX: E11.65 Type 2 diabetes mellitus with hyperglycemia (principal); E04.1 Nontoxic single thyroid nodule; E11.40 Type 2 diabetes mellitus with diabetic neuropathy, unspecified; G47.33 Obstructive sleep apnea (adult) (pediatric); R35.0 Frequency of micturition; R39.15 Urgency of urination; I11.9 Hypertensive heart disease without heart failure; R42 Dizziness and giddiness; H53.2 Diplopia; E78.5 Hyperlipidemia, unspecified
CPT/HCPCS: 36415; 70450; 70496; 70498; 70544; 71045; 80053; 80061; 80307; 81001; 83036; 83735; 84100; 84439; 84443; 84484; 85025; 85610; 85730; 90471; 90686; 92610; 93005; 93306; 94660; 96365; 96366; 97161; 99285; A4649; G0378; J1815; J3475; Q9967; A9270; G0008; J9060

== ENCOUNTER 2025-07-15 08:47 | Emergency (ER) | payer MEDICARE, MEDICAID, SELFPAY ==
[2025-07-15 08:56] VITALS: BP 148/76; PULSE 73; RESP 17; TEMP 36.6; O2SAT 98; BMI 21.9
--- NOTE | 2025-07-15 09:28 | PD.EDADULT ---
ED General RME/HPI General Chief complaint: General Adult/Misc Complain Stated complaint: L ARM PAIN FOR ABOUT 4 MONTHS Time Seen by Provider: 07/15/25 08:55 Arrival date/time: 07/15/25 08:47 This is a 65-year-old female that comes into the emergency room with complaints of shoulder pain for the past 4 months. Patient was seen by primary doctor and was told that she has arthritis to her shoulder and that is why she is having pain. Patient states she was not prescribed any medications for pain. Patient does have a history of high cholesterol and diabetes. Patient denies any numbness tingling. Patient denies any redness or swelling to her left shoulder. Patient denies any new trauma. Related Data Home Medications ?Medication ?Instructions ?Recorded ?Confirmed blood-glucose sensor (FreeStyle 04/30/25 04/30/25 Zaria 3 Plus Sensor device) ergocalciferol (vitamin D2) 1,250 1,250 mcg PO .MON 04/30/25 04/30/25 mcg (50,000 unit) capsule gabapentin 100 mg capsule 100 mg PO DAILY 04/30/25 04/30/25 Previous Rx's ?Medication ?Instructions ?Recorded aspirin 81 mg tablet,delayed 81 mg PO QDAY #30 tabs 05/02/25 release (Adult Low Dose Aspirin) atorvastatin 80 mg tablet (Lipitor) 80 mg PO QPM #30 tabs 05/02/25 blood sugar diagnostic (Blood #50 ea 05/02/25 Glucose Test strips) blood-glucose meter #1 ea 05/02/25 insulin glargine 100 unit/mL (3 15 unit (0.15 mL) subcut QAM #15 mL 05/02/25 mL) subcutaneous pen (Basaglar KwikPen U-100 Insulin) insulin lispro 100 unit/mL 3 unit (0.03 mL) subcut TID #15 mL 05/02/25 subcutaneous pen (Humalog KwikPen (U-100) Insulin) lancets 21 gauge (Color Lancets) #100 ea 05/02/25 pen needle, diabetic 29 gauge x #100 ea 05/02/25 1/2 (Comfort EZ Pen Burton) baclofen 10 mg tablet 10 mg PO BID #20 tabs 07/15/25 ibuprofen 800 mg tablet 800 mg PO Q6H PRN pain #14 tabs 07/15/25 Allergies Allergy/AdvReac Type Severity Reaction Status Date / Time tramadol Allergy Severe Vomiting Verified 07/15/25 08:49 Review of Systems Review of Systems Systems Reviewed: All systems reviewed, normal except as documented Past Medical History Past Medical History NEUROLOGIC: Negative Neurological Disorders or Seizures CARDIAC: Negative Cardiac Disorders or Congestive Heart Failure RESPIRATORY: Positive Sleep Apnea; Negative Chronic Obstructive Pulmonary Disease (COPD) GASTROINTESTINAL: Positive Gastrointestinal Disorders and Gall Bladder Disease GENITOURINARY: Negative Genitourinary Disorders or Renal Disease REPRODUCTIVE: Positive Previous Pregnancies MUSCULOSKELETAL: Positive Arthritis and Carpal Tunnel Syndrome ENDOCRINE: Positive Diabetes Mellitus Type 2 and Hypothyroidism; Negative Diabetes Mellitus Type 1 HEMATOLOGIC: Negative Blood Disorders OTHER HISTORY: Positive Falls and Chicken Pox; Negative Hospitalization, Autoimmune Disease, Shingles, Blood Transfusions, Blood Transfusion Reaction, Anesthesia Reactions, Chemotherapy, Radiation Therapy or MRSA Family History FAMILY HISTORY: Positive Family Cardiac Disorders, Family Cancer and Family Surgery; Negative Family Psychiatric Problems, Family Respiratory Disorders, Family Gastrointestinal Problems or Family Anesthesia Reaction Surgical History SURGICAL: Positive Tubal Ligation Social History SMOKING STATUS: Never smoker SUBSTANCE USE: does not use ED Exam Narrative Physical exam: VITAL SIGNS: Reviewed. GENERAL APPEARANCE: Alert and interactive, follows commands, no acute distress HEAD AND FACE: Non-traumatic. ENT: PERRL, conjuctiva pink and clear, eyelid no trauma, Mucous membrane moist. NECK: Supple, nontender, no nuchal rigidity. CHEST: No tenderness, no crepitus, no paradoxical movement, no retractions. LUNGS: breathing even and unlabored HEART: Regular rate, cap refill less than 2 seconds ABDOMEN: Soft, nondistended, no guarding, nontender, no rebound, no masses, NEUROLOGICAL: Gross motor function intact sensory function intact, Appropriate for age. MUSCULOSKELETAL: low back nontender, no midline tenderness, no meningismus, no step offs, mild pain to palpation to the lateral muscles of the posterior lower neck on the left side and posterior shoulder. Pain with range of motion above 90 degrees going forward and to the side. Patient has a hard time lifting her shoulder over her head is able to lift, with pain. EXTREMITIES: No redness no swelling no skin breakdown on bilateral foot and leg. Distal neurovascular status intact bilateral foot SKIN: Color pink, dry, no rash, no lacerations, no abrasions, no contusions. Course Quality Measures none Orders Category Date Time Status Acetaminophen Tab [Tylenol ES Tab] Med 07/15/25 09:22 Discontinued 1,000 mg PO X1 ONE Ibuprofen Tab [Motrin Tab] Med 07/15/25 09:22 Discontinued 800 mg PO X1 ONE Vital Signs Vital signs: Vital Signs Temperature 97.9 F 07/15/25 08:56 Pulse Rate 73 07/15/25 08:56 Respiratory Rate 17 07/15/25 08:56 Blood Pressure 148/76 H 07/15/25 08:56 Pulse Oximetry (%) 98 07/15/25 08:56 Oxygen Delivery Method Room Air 07/15/25 08:56 Discharge Plan Plan Patient Disposition: HOME (Self Care) Patient condition on transfer: Stable Prescriptions/Referrals Prescriptions/Med Rec: New ibuprofen 800 mg tablet 800 mg PO Q6H PRN (Reason: pain) Qty: 14 0RF baclofen 10 mg tablet 10 mg PO BID Qty: 20 0RF No Action gabapentin 100 mg capsule 100 mg PO DAILY Patient Comments: TAKE ONE CAPSULE BY MOUTH TWICE DAILY FOR NERVE PAIN ergocalciferol (vitamin D2) 1,250 mcg (50,000 unit) capsule 1,250 mcg PO .MON Patient Comments: TAKE ONE CAPSULE BY MOUTH EVERY WEEK VITAMIN (DME) FreeStyle Zaria 3 Plus Sensor Device Patient Comments: DIRECTED insulin glargine [Basaglar KwikPen U-100 Insulin] 100 unit/mL (3 mL) insulin pen 15 unit subcut QAM Qty: 15 0RF atorvastatin [Lipitor] 80 mg tablet 80 mg PO QPM Qty: 30 0RF aspirin [Adult Low Dose Aspirin] 81 mg tablet,delayed release (DR/EC) 81 mg PO QDAY Qty: 30 0RF insulin lispro [Humalog KwikPen Insulin] 100 unit/mL insulin pen 3 unit subcut TID Qty: 15 0RF (DME) blood-glucose meter Misc See Rx Instructions .Route Qty: 1 0RF Rx Instructions: As directed (DME) Blood Glucose Test Strip See Rx Instructions .Route Qty: 50 0RF Rx Instructions: As directed (DME) pen needle, diabetic [Comfort EZ Pen Burton] 29 gauge x 1/2 needle See Rx Instructions .Route Qty: 100 0RF Rx Instructions: Inject 4 times daily (DME) lancets [Color Lancets] 21 gauge misc See Rx Instructions .Route Qty: 100 0RF Rx Instructions: 4 times daily Problem List Clinical Impression: Muscle tension pain, Chronic left shoulder pain Patient/Caregiver Discharge Instructions Discharge Activity: activity as tolerated Education Materials: CHAKA, Managing Chronic Pain Additional Instructions: Follow up with primary provider in 1-2 days. Come back to ED if symptoms change or worsen. Please make an appointment with primary doctor about further imaging of the left shoulder such as an MRI. Print Language: Spanish Stand Alone Forms: Veronica Award Info., Patient Portal Info Letter PA/HAND INSPECTOR Supervising Physician PA/HAND INSPECTOR Supervising Physician: SCOOBY BRANNON Narrative MDM hospital course (for use when minimal MDM required): I spoke to patient at length. I told patient she would need to follow-up with her primary provider. Patient may need an MRI I explained to patient she can have an impingement and that she can also have a tear her rotator cuff which is causing her to have pain. This has been a chronic problem and she has not followed up with her doctor after the x-rays. Explained to her that for continued pain she may need more tasks. Depending on how bad the x-rays were she may need to see orthopedic surgeon. Per patient there was no fracture but it did show arthritis. No new x-rays done today. I did talk to patient I let her know that we could order them but she states she just had them done. I explained to patient she may need an MRI to see a better picture of her shoulder. Patient verbalized understanding. Today we will give her ibuprofen and Tylenol. She seems to have a lot of muscle tension to the posterior left neck likely from strain I will order a muscle relaxant and ibuprofen to go home with. Patient told to make sure she follows up with her primary doctor in 1 to 2 days. [place] to emergency room symptoms change or worsen. Dragon dictation: Although this document has been carefully reviewed, there may still be some phonetic and other typographical errors. These errors are purely grammatical due to imperfections in the software program and should not be construed in any way to compromise the substance of the patient's medical care during this visit. Clinical Information Provided by: patient Medical Records reviewed [facility] Meds/Rx considered, not ordered None Imaging Imaging interpretation: other (see note ) Medication Administration(s) Medication Administration History Discontinued Medications Acetaminophen (Acetaminophen 500 Mg Tablet) 1,000 mg PO X1 ONE Stop: 07/15/25 09:23 Last Admin: 07/15/25 09:36 Dose: 1,000 mg Documented By: BARNDAN Ibuprofen (Ibuprofen Tab 400 Mg Tablet) 800 mg PO X1 ONE Stop: 07/15/25 09:23 Last Admin: 07/15/25 09:35 Dose: 800 mg Documented By: BRANADN
[2025-07-15] MEDS: IBUPROFEN TAB 400 MG TABLET 800 MG PO (09:35)
[2025-07-15] MEDS: ACETAMINOPHEN 500 MG TABLET 1000 MG PO (09:36)
== END 2025-07-15 09:39 | disposition home or self-care (01) ==
PROVIDERS: Emergency Provider Nurse Practitioner Family; PCP Nurse Practitioner Family
DX: M79.18 Myalgia, other site (principal); G89.29 Other chronic pain
CPT/HCPCS: 99281; A9270